=== PATIENT | male | born 1935 | race Caucasian/White ===

== ENCOUNTER 2017-04-21 17:20 | Inpatient (IN) ==
--- OUTSIDE RECORDS SUMMARY | 2017-04-21 17:58 | External Medical Summary | Continuity of Care Document ---
:1935 Author Organization [facility] Allergies Active Description Code Type Severity Reaction Onset Reported/ Identified Relationship Clinical to Patient Status Yes No Known F0019 Drug Unknown N/A 03/26/2013 Drug [id number] Aller Allergies gy Medications There is no data. Problems Date Dx Attending Type Code Diagnosis Diagnosed By Coded 02/24/1914 MARGARITO BALDERAS MD Ot D46.A REFRACTORY CYTOPENIA WITH MULTILINEAGE D 02/24/1914 MARGARITO BALDERAS MD Ot D61.818 OTHER PANCYTOPENIA 03/26/2013 RUNDELL-LITTLE Ot 272.4 , BINA Benedict 03/26/2013 RUNDELL-LITTLE Ot 401.9 , BINA Benedict 03/26/2013 RUNDELL-LITTLE Ot 682.6 , IBNA W 03/26/2013 RUNDELL-LITTLE Ot 959.7 , BINA Benedict 03/26/2013 RUNDELL-LITTLE Ot V15.82 , BINA Benedict 03/28/2013 HINA DO, Ot 401.9 DAVID A 03/28/2013 HINA DO, Ot 682.6 DAVID A 03/28/2013 HINA DO, Ot 729.81 DAVID A 06/28/2013 Maurice MARTIN, Ot 682.6 Ravi Klein 04/01/2015 Ot V82.89 04/01/2015 Ot 682.6 04/03/2015 Ot V82.89 04/03/2015 Ot 682.6 04/03/2015 MARGARITO BALDERAS MD Ot D61.818 04/03/2015 MARGARITO BALDERAS MD Ot D64.9 04/03/2015 MARGARITO BALDERAS MD Ot R53.83 04/23/2015 MARGARITO BALDERAS MD Ot D61.818 04/23/2015 MARGARITO BALDERAS MD Ot D64.9 04/23/2015 MARGARITO BALDERAS MD Ot R53.83 05/05/2015 MARGARITO BALDERAS MD Ot D61.818 05/05/2015 SHERRIE MARTIN MARGARITO J Ot D64.9 05/05/2015 SHERRIE MARTIN MARGARITO J Ot R53.83 05/07/2015 SHERRIE MARTIN MARGARITO J Ot D64.9 05/08/2015 MARGARITO BALDERAS MD Ot D64.9 05/21/2015 SHERRIE MARTIN MARGARITO J Ot M25.551 05/21/2015 SHERRIE MARTIN MARGARITO J Ot M51.37 05/29/2015 SHERRIE MARTIN MARGARITO J Ot M25.551 05/29/2015 SHERRIE MARTIN MARGARITO J Ot M51.37 06/25/2015 SHERRIE MARTIN MARGARITO J Ot M25.551 06/25/2015 SHERRIE MARTIN MARGARITO J Ot M51.37 07/01/2015 SHERRIE MARTIN MARGARITO J Ot D61.818 07/01/2015 SHERRIE MARTIN MARGARITO J Ot D61.818 07/03/2015 SHERRIE MARTIN MARGARITO J Ot D61.818 07/03/2015 SHERRIE MARTIN MARGARITO J Ot D61.818 07/07/2015 SHERRIE MARTIN MARGARITO J Ot D61.818 07/07/2015 SHERRIE MARTIN MARGARITO J Ot D61.818 07/07/2015 SHERRIE MARTIN MARGARITO J Ot D61.818 07/17/2015 SHERRIE MARTIN MARGARITO J Ot D61.818 OTHER PANCYTOPENIA 07/21/2015 SHERRIE MARTIN MARGARITO J Ot D61.818 OTHER PANCYTOPENIA 07/22/2015 SHERRIE MARTIN MARGARITO J Ot D61.818 OTHER PANCYTOPENIA 07/30/2015 SHERRIE MARTIN MARGARITO J Ot D61.818 OTHER PANCYTOPENIA 07/30/2015 SHERRIE MARTIN MARGARITO J Ot D46.A REFRACTORY CYTOPENIA WITH MULTILINEAGE D 07/30/2015 MARGARITO BALDERAS MD J Ot D61.818 OTHER PANCYTOPENIA 08/02/2015 MARGARITO BALDERAS MD Ot D46.A REFRACTORY CYTOPENIA WITH MULTILINEAGE D 08/02/2015 MARGARITO BALDERAS MD J Ot D61.818 OTHER PANCYTOPENIA 10/05/2015 MARGARITO BALDERAS MD Ot D46.A REFRACTORY CYTOPENIA WITH MULTILINEAGE D 10/05/2015 MARGARITO BALDERAS MD J Ot D61.818 OTHER PANCYTOPENIA 10/06/2015 MARGARITO BALDERAS MD Ot D46.A REFRACTORY CYTOPENIA WITH MULTILINEAGE D 10/06/2015 MARGARITO BALDERAS MD Ot D61.818 OTHER PANCYTOPENIA 10/15/2015 MARGARITO BALDERAS MD Ot D46.A REFRACTORY CYTOPENIA WITH MULTILINEAGE D 10/15/2015 MARGARITO BALDERAS MD Ot D61.818 OTHER PANCYTOPENIA 10/22/2015 MARGARITO BALDERAS MD Ot D46.A REFRACTORY CYTOPENIA WITH MULTILINEAGE D 10/31/2015 MARGARITO BALDERAS MD Ot D46.A REFRACTORY CYTOPENIA WITH MULTILINEAGE D 11/17/2015 MARGARITO BALDERAS MD Ot D46.A REFRACTORY CYTOPENIA WITH MULTILINEAGE D 11/24/2015 MARGARITO BALDERAS MD Ot D46.A REFRACTORY CYTOPENIA WITH MULTILINEAGE D 01/04/2016 MARGARITO BALDERAS MD Ot D46.A REFRACTORY CYTOPENIA WITH MULTILINEAGE D 01/05/2016 MARGARITO BALDERAS MD Ot D46.A REFRACTORY CYTOPENIA WITH MULTILINEAGE D 01/05/2016 MARGARITO BALDERAS MD Ot D61.818 OTHER PANCYTOPENIA 01/05/2016 MARGARITO BALDERAS MD Ot D46.A REFRACTORY CYTOPENIA WITH MULTILINEAGE D 01/05/2016 MARGARITO BALDERAS MD Ot D46.A REFRACTORY CYTOPENIA WITH MULTILINEAGE D 01/05/2016 MARGARITO BALDERAS MD Ot D61.818 OTHER PANCYTOPENIA 01/05/2016 MARGARITO BALDERAS MD Ot D46.A REFRACTORY CYTOPENIA WITH MULTILINEAGE D 01/05/2016 MARGARITO BALDERAS MD Ot D61.818 OTHER PANCYTOPENIA 01/05/2016 MARGARITO BALDERAS MD Ot D46.A REFRACTORY CYTOPENIA WITH MULTILINEAGE D 01/05/2016 MARGARITO BALDERAS MD Ot D61.818 OTHER PANCYTOPENIA 01/19/2016 MARGARITO BALDERAS MD Ot D46.A REFRACTORY CYTOPENIA WITH MULTILINEAGE D 01/19/2016 MARGARITO BALDERAS MD Ot D46.A REFRACTORY CYTOPENIA WITH MULTILINEAGE D 01/19/2016 MARGARITO BALDERAS MD Ot D46.A REFRACTORY CYTOPENIA WITH MULTILINEAGE D 01/19/2016 MARGARITO BALDERAS MD Ot D61.818 OTHER PANCYTOPENIA 01/19/2016 MARGARITO BALDERAS MD Ot D46.A REFRACTORY CYTOPENIA WITH MULTILINEAGE D 01/19/2016 MARGARITO BALDERAS MD Ot D61.818 OTHER PANCYTOPENIA 01/21/2016 MARGARITO BALDERAS MD Ot D46.A REFRACTORY CYTOPENIA WITH MULTILINEAGE D 02/18/2016 MARGARITO BALDERAS MD Ot D46.A REFRACTORY CYTOPENIA WITH MULTILINEAGE D 02/18/2016 MARGARITO BALDERAS MD Ot D61.818 OTHER PANCYTOPENIA 02/26/2016 MARGARITO BALDERAS MD Ot D61.818 OTHER PANCYTOPENIA 02/26/2016 MARGARITO BALDERAS MD Ot D64.9 ANEMIA, UNSPECIFIED 02/26/2016 MARGARITO BALDERAS MD Ot R53.83 OTHER FATIGUE 02/26/2016 MARGARITO BALDERAS MD Ot D64.9 ANEMIA, UNSPECIFIED 04/04/2016 MARGARITO BALDERAS MD Ot D46.A REFRACTORY CYTOPENIA WITH MULTILINEAGE D 04/04/2016 MARGARITO BALDERAS MD Ot D61.818 OTHER PANCYTOPENIA 04/04/2016 MARGARITO BALDERAS MD Ot N18.9 CHRONIC KIDNEY DISEASE, UNSPECIFIED 04/06/2016 MARGARITO BALDERAS MD Ot D46.A REFRACTORY CYTOPENIA WITH MULTILINEAGE D 04/06/2016 MARGARITO BALDERAS MD Ot D61.818 OTHER PANCYTOPENIA 04/12/2016 MARGARITO BALDERAS MD Ot D46.A REFRACTORY CYTOPENIA WITH MULTILINEAGE D 04/12/2016 MARGARITO BALDERAS MD Ot D61.818 OTHER PANCYTOPENIA 04/14/2016 MARGARITO BALDERAS MD Ot D46.A REFRACTORY CYTOPENIA WITH MULTILINEAGE D 04/14/2016 MARGARITO BALDERAS MD Ot D61.818 OTHER PANCYTOPENIA 04/14/2016 MARGARITO BALDERAS MD Ot N18.9 CHRONIC KIDNEY DISEASE, UNSPECIFIED 04/20/2016 MARGARITO BALDERAS MD Ot D46.A REFRACTORY CYTOPENIA WITH MULTILINEAGE D 04/20/2016 MARGARITO BALDERAS MD Ot D61.818 OTHER PANCYTOPENIA 04/21/2016 MARGARITO BALDERAS MD Ot D46.A REFRACTORY CYTOPENIA WITH MULTILINEAGE D 04/21/2016 MARGARITO BALDERAS MD Ot D61.818 OTHER PANCYTOPENIA 06/16/2016 MARGARITO BALDERAS MD Ot D46.A REFRACTORY CYTOPENIA WITH MULTILINEAGE D 06/16/2016 MARGARITO BALDERAS MD Ot D61.818 OTHER PANCYTOPENIA 07/11/2016 MARGARITO BALDERAS MD Ot D46.A REFRACTORY CYTOPENIA WITH MULTILINEAGE D 07/11/2016 MARGARITO BALDERAS MD Ot D61.818 OTHER PANCYTOPENIA 07/12/2016 MARGARITO BALDERAS MD Ot D46.A REFRACTORY CYTOPENIA WITH MULTILINEAGE D 07/12/2016 MARGARITO BALDERAS MD Ot D61.818 OTHER PANCYTOPENIA 07/15/2016 MARGARITO BALDERAS MD Ot D46.A REFRACTORY CYTOPENIA WITH MULTILINEAGE D 07/15/2016 MARGARITO BALDERAS MD Ot D61.818 OTHER PANCYTOPENIA 07/15/2016 MARGARITO BALDERAS MD Ot D46.A REFRACTORY CYTOPENIA WITH MULTILINEAGE D 07/15/2016 MARGARITO BALDERAS MD Ot D61.818 OTHER PANCYTOPENIA 07/27/2016 MARGARITO BALDERAS MD Ot D46.A REFRACTORY CYTOPENIA WITH MULTILINEAGE D 07/27/2016 MARGARITO BALDERAS MD Ot D61.818 OTHER PANCYTOPENIA 07/28/2016 MARGARITO BALDERAS MD Ot D46.A REFRACTORY CYTOPENIA WITH MULTILINEAGE D 07/28/2016 MARGARITO BALDERAS MD Ot D61.818 OTHER PANCYTOPENIA 08/20/2016 MARGARITO BALDERAS MD Ot D46.A REFRACTORY CYTOPENIA WITH MULTILINEAGE D 08/20/2016 MARGARITO BALDERAS MD Ot D61.818 OTHER PANCYTOPENIA 08/24/2016 MARGARITO BALDERAS MD Ot D46.A REFRACTORY CYTOPENIA WITH MULTILINEAGE D 08/24/2016 MARGARITO BALDERAS MD Ot D46.A REFRACTORY CYTOPENIA WITH MULTILINEAGE D 08/25/2016 MARGARITO BALDERAS MD Ot D46.A REFRACTORY CYTOPENIA WITH MULTILINEAGE D Procedures There is no data. Results Test Result Range Complete blood count (CBC) with automated white blood cell (WBC) differential - 10/27/15 07:55 Blood automated leukocyte count 3.04 4.0-11.0 Erythrocytes 3.33 4.50-5.50 12.0-16.0;g/dL 11.2 13.5-17.0 Hematocrit 33.50 39.00-50.00 Automated erythrocyte mean corpuscular volume 101 80-100 Mean corpuscular hemoglobin (MCH) determination 33.6 26.0-34.0 Automated erythrocyte mean corpuscular 33.4 31.0-37.0 hemoglobin concentration measurement (mass/volume) Erythrocyte distribution width 19.1 11.8-15.6 Automated blood platelet count 123 150-450 Automated blood platelet mean volume measurement 11.1 6.0-9.5 Complete blood count, platelets with manual differential - 10/27/15 07:55 Total cell count 100 Blood segmented neutrophils percentage 37 51-67 Blood band neutrophil count as percentage of 0 0-6 total leukocytes LYMPHOCYTES % 55 20-46 Automated monocyte percentage 4 3-11 Eosinophil count auto 4 0-4 Basophils 0 0-2 Manual blood metamyelocytes/100 leukocytes 0 0-1 NEUTROPHILS(SEG) 1.1 NEUTROPHILS # BANDS 0.0 Blood lymphocytes manual count 1.7 (number/volume) Automated blood monocyte count 0.1 Blood absolute eosinophil count 0.1 Basophils 0.0 Erythrocyte morphology assessment SEE REFERENCE NORMAL Blood poikilocytosis detection by light SLIGHT microscopy Blood anisocytosis detection SLIGHT Complete blood count (CBC) with automated white blood cell (WBC) differential - 11/10/15 08:35 Blood automated leukocyte count 2.78 4.0-11.0 Erythrocytes 3.59 4.50-5.50 12.0-16.0;g/dL 12.1 13.5-17.0 Hematocrit 35.60 39.00-50.00 Automated erythrocyte mean corpuscular volume 99 80-100 Mean corpuscular hemoglobin (MCH) determination 33.7 26.0-34.0 Automated erythrocyte mean corpuscular 34.0 31.0-37.0 hemoglobin concentration measurement (mass/volume) Erythrocyte distribution width 18.7 11.8-15.6 Automated blood platelet count 140 150-450 Automated blood platelet mean volume measurement 11.0 6.0-9.5 Complete blood count, platelets with manual differential - 11/10/15 08:35 Total cell count 100 Blood segmented neutrophils percentage 29 51-67 Blood band neutrophil count as percentage of 0 0-6 total leukocytes LYMPHOCYTES % 56 20-46 Automated monocyte percentage 10 3-11 Eosinophil count auto 4 0-4 Basophils 1 0-2 Manual blood metamyelocytes/100 leukocytes 0 0-1 NEUTROPHILS(SEG) 0.8 NEUTROPHILS # BANDS 0.0 Blood lymphocytes manual count 1.5 (number/volume) Automated blood monocyte count 0.2 Blood absolute eosinophil count 0.1 Basophils 0.0 Erythrocyte morphology assessment SEE REFERENCE NORMAL Blood anisocytosis detection SLIGHT Complete blood count (CBC) with automated white blood cell (WBC) differential - 11/24/15 07:58 Blood automated leukocyte count 2.38 4.0-11.0 Erythrocytes 3.78 4.50-5.50 12.0-16.0;g/dL 12.6 13.5-17.0 Hematocrit 38.00 39.00-50.00 Automated erythrocyte mean corpuscular volume 101 80-100 Mean corpuscular hemoglobin (MCH) determination 33.3 26.0-34.0 Automated erythrocyte mean corpuscular 33.2 31.0-37.0 hemoglobin concentration measurement (mass/volume) Erythrocyte distribution width 18.7 11.8-15.6 Automated blood platelet count 120 150-450 Complete blood count, platelets with manual differential - 11/24/15 07:58 Total cell count 100 Blood segmented neutrophils percentage 22 51-67 Blood band neutrophil count as percentage of 0 0-6 total leukocytes LYMPHOCYTES % 71 20-46 Automated monocyte percentage 5 3-11 Eosinophil count auto 2 0-4 Basophils 0 0-2 Manual blood metamyelocytes/100 leukocytes 0 0-1 NEUTROPHILS(SEG) 0.5 NEUTROPHILS # BANDS 0.0 Blood lymphocytes manual count 1.6 (number/volume) Automated blood monocyte count 0.1 Blood absolute eosinophil count 0.0 Basophils 0.0 Erythrocyte morphology assessment SEE REFERENCE NORMAL Blood macrocytes detection by light MARKED microscopy Complete blood count (CBC) with automated white blood cell (WBC) differential - 12/08/15 07:55 Blood automated leukocyte count 2.58 4.0-11.0 Erythrocytes 3.39 4.50-5.50 12.0-16.0;g/dL 11.6 13.5-17.0 Hematocrit 33.70 39.00-50.00 Automated erythrocyte mean corpuscular volume 99 80-100 Mean corpuscular hemoglobin (MCH) determination 34.2 26.0-34.0 Automated erythrocyte mean corpuscular 34.4 31.0-37.0 hemoglobin concentration measurement (mass/volume) Erythrocyte distribution width 18.1 11.8-15.6 Automated blood platelet count 137 150-450 Automated blood platelet mean volume measurement 11.4 6.0-9.5 Complete blood count, platelets with manual differential - 12/08/15 07:55 Total cell count 100 Blood segmented neutrophils percentage 22 51-67 Blood band neutrophil count as percentage of 0 0-6 total leukocytes LYMPHOCYTES % 63 20-46 Automated monocyte percentage 13 3-11 Eosinophil count auto 2 0-4 Basophils 0 0-2 Manual blood metamyelocytes/100 leukocytes 0 0-1 NEUTROPHILS(SEG) 0.6 NEUTROPHILS # BANDS 0.0 Blood lymphocytes manual count 1.6 (number/volume) Automated blood monocyte count 0.3 Blood absolute eosinophil count 0.0 Basophils 0.0 Erythrocyte morphology assessment SEE REFERENCE NORMAL Blood anisocytosis detection SLIGHT Blood macrocytes detection by light MODERATE microscopy Complete blood count (CBC) with automated white blood cell (WBC) differential - 12/22/15 08:40 Blood automated leukocyte count 2.93 4.0-11.0 Erythrocytes 3.49 4.50-5.50 12.0-16.0;g/dL 11.7 13.5-17.0 Hematocrit 34.90 39.00-50.00 Automated erythrocyte mean corpuscular volume 100 80-100 Mean corpuscular hemoglobin (MCH) determination 33.5 26.0-34.0 Automated erythrocyte mean corpuscular 33.5 31.0-37.0 hemoglobin concentration measurement (mass/volume) Erythrocyte distribution width 18.2 11.8-15.6 Automated blood platelet count 140 150-450 Automated blood platelet mean volume measurement 11.6 6.0-9.5 Complete blood count, platelets with manual differential - 12/22/15 08:40 Total cell count 100 Blood segmented neutrophils percentage 23 51-67 Blood band neutrophil count as percentage of 2 0-6 total leukocytes LYMPHOCYTES % 44 20-46 Automated monocyte percentage 22 3-11 Eosinophil count auto 6 0-4 Basophils 0 0-2 Manual blood metamyelocytes/100 leukocytes 0 0-1 NEUTROPHILS(SEG) 0.7 NEUTROPHILS # BANDS 0.0 Blood lymphocytes manual count 1.3 (number/volume) Automated blood monocyte count 0.4 Blood absolute eosinophil count 0.1 Basophils 0.0 Lymphocytes.variant 3 <1 Smudge cell detection 2+ Erythrocyte morphology assessment SEE REFERENCE NORMAL Blood anisocytosis detection SLIGHT Blood macrocytes detection by light MODERATE microscopy Complete blood count (CBC) with automated white blood cell (WBC) differential - 01/05/16 08:25 Blood automated leukocyte count 2.88 4.0-11.0 Erythrocytes 3.45 4.50-5.50 12.0-16.0;g/dL 11.8 13.5-17.0 Hematocrit 34.40 39.00-50.00 Automated erythrocyte mean corpuscular volume 100 80-100 Mean corpuscular hemoglobin (MCH) determination 34.2 26.0-34.0 Automated erythrocyte mean corpuscular 34.3 31.0-37.0 hemoglobin concentration measurement (mass/volume) Erythrocyte distribution width 17.7 11.8-15.6 Automated blood platelet count 155 150-450 Automated blood platelet mean volume measurement 10.2 6.0-9.5 Complete blood count, platelets with manual differential - 01/05/16 08:25 Total cell count 100 Blood segmented neutrophils percentage 20 51-67 Blood band neutrophil count as percentage of 0 0-6 total leukocytes LYMPHOCYTES % 54 20-46 Automated monocyte percentage 19 3-11 Eosinophil count auto 6 0-4 Basophils 1 0-2 NEUTROPHILS(SEG) 0.6 NEUTROPHILS # BANDS 0.0 Blood lymphocytes manual count 1.5 (number/volume) Automated blood monocyte count 0.4 Blood absolute eosinophil count 0.1 Basophils 0.0 Erythrocyte morphology assessment SEE REFERENCE NORMAL Blood anisocytosis detection SLIGHT Complete blood count (CBC) with automated white blood cell (WBC) differential - 01/19/16 08:06 Blood automated leukocyte count 2.63 4.0-11.0 Erythrocytes 3.48 4.50-5.50 12.0-16.0;g/dL 11.8 13.5-17.0 Hematocrit 34.70 39.00-50.00 Automated erythrocyte mean corpuscular volume 100 80-100 Mean corpuscular hemoglobin (MCH) determination 33.9 26.0-34.0 Automated erythrocyte mean corpuscular 34.0 31.0-37.0 hemoglobin concentration measurement (mass/volume) Erythrocyte distribution width 17.2 11.8-15.6 Automated blood platelet count 149 150-450 Automated blood platelet mean volume measurement 11.6 6.0-9.5 Complete blood count, platelets with manual differential - 01/19/16 08:06 Total cell count 100 Blood segmented neutrophils percentage 20 51-67 Blood band neutrophil count as percentage of 0 0-6 total leukocytes LYMPHOCYTES % 55 20-46 Automated monocyte percentage 19 3-11 Eosinophil count auto 6 0-4 Basophils 0 0-2 Manual blood metamyelocytes/100 leukocytes 0 0-1 NEUTROPHILS(SEG) 0.5 NEUTROPHILS # BANDS 0.0 Blood lymphocytes manual count 1.4 (number/volume) Automated blood monocyte count 0.4 Blood absolute eosinophil count 0.1 Basophils 0.0 Erythrocyte morphology assessment SEE REFERENCE NORMAL Blood anisocytosis detection SLIGHT Blood macrocytes detection by light SLIGHT microscopy Complete blood count (CBC) with automated white blood cell (WBC) differential - 02/02/16 08:00 Blood automated leukocyte count 2.58 4.0-11.0 Erythrocytes 3.41 4.50-5.50 12.0-16.0;g/dL 11.6 13.5-17.0 Hematocrit 34.00 39.00-50.00 Automated erythrocyte mean corpuscular volume 100 80-100 Mean corpuscular hemoglobin (MCH) determination 34.0 26.0-34.0 Automated erythrocyte mean corpuscular 34.1 31.0-37.0 hemoglobin concentration measurement (mass/volume) Erythrocyte distribution width 17.2 11.8-15.6 Automated blood platelet count 152 150-450 Automated blood platelet mean volume measurement 11.0 6.0-9.5 Complete blood count, platelets with manual differential - 02/02/16 08:00 Total cell count 100 Blood segmented neutrophils percentage 31 51-67 Blood band neutrophil count as percentage of 0 0-6 total leukocytes LYMPHOCYTES % 49 20-46 Automated monocyte percentage 17 3-11 Eosinophil count auto 3 0-4 Basophils 0 0-2 Manual blood metamyelocytes/100 leukocytes 0 0-1 NEUTROPHILS(SEG) 0.8 NEUTROPHILS # BANDS 0.0 Blood lymphocytes manual count 1.2 (number/volume) Automated blood monocyte count 0.3 Blood absolute eosinophil count 0.1 Basophils 0.0 Erythrocyte morphology assessment SEE REFERENCE NORMAL Blood anisocytosis detection SLIGHT Complete blood count (CBC) with automated white blood cell (WBC) differential - 02/16/16 08:09 Blood automated leukocyte count 2.16 4.0-11.0 Erythrocytes 3.53 4.50-5.50 12.0-16.0;g/dL 11.9 13.5-17.0 Hematocrit 35.10 39.00-50.00 Automated erythrocyte mean corpuscular volume 99 80-100 Mean corpuscular hemoglobin (MCH) determination 33.7 26.0-34.0 Automated erythrocyte mean corpuscular 33.9 31.0-37.0 hemoglobin concentration measurement (mass/volume) Erythrocyte distribution width 16.6 11.8-15.6 Automated blood platelet count 150 150-450 Automated blood platelet mean volume measurement 12.4 6.0-9.5 Complete blood count, platelets with manual differential - 02/16/16 08:09 Total cell count 100 Blood segmented neutrophils percentage 14 51-67 Blood band neutrophil count as percentage of total 1 0-6 leukocytes LYMPHOCYTES % 52 20-46 Automated monocyte percentage 25 3-11 Eosinophil count auto 7 0-4 Basophils 1 0-2 NEUTROPHILS(SEG) 0.3 NEUTROPHILS # BANDS 0.0 Blood lymphocytes manual count (number/volume) 1.1 Automated blood monocyte count 0.5 Blood absolute eosinophil count 0.1 Basophils 0.0 Erythrocyte morphology assessment NORMAL NORMAL Complete blood count (CBC) with automated white blood cell (WBC) differential - 02/23/16 09:26 Blood automated leukocyte count 2.25 4.0-11.0 Erythrocytes 3.53 4.50-5.50 12.0-16.0;g/dL 12.0 13.5-17.0 Hematocrit 35.10 39.00-50.00 Automated erythrocyte mean corpuscular volume 99 80-100 Mean corpuscular hemoglobin (MCH) determination 34.0 26.0-34.0 Automated erythrocyte mean corpuscular 34.2 31.0-37.0 hemoglobin concentration measurement (mass/volume) Erythrocyte distribution width 16.9 11.8-15.6 Automated blood platelet count 130 150-450 Automated blood platelet mean volume measurement 11.3 6.0-9.5 Complete blood count, platelets with manual differential - 02/23/16 09:26 Total cell count 100 Blood segmented neutrophils percentage 26 51-67 Blood band neutrophil count as percentage of total 0 0-6 leukocytes LYMPHOCYTES % 61 20-46 Automated monocyte percentage 12 3-11 Eosinophil count auto 1 0-4 Basophils 0 0-2 Manual blood metamyelocytes/100 leukocytes 0 0-1 NEUTROPHILS(SEG) 0.6 NEUTROPHILS # BANDS 0.0 Blood lymphocytes manual count (number/volume) 1.3 Automated blood monocyte count 0.2 Blood absolute eosinophil count 0.0 Basophils 0.0 Erythrocyte morphology assessment NORMAL NORMAL Complete blood count (CBC) with automated white blood cell (WBC) differential - 03/01/16 09:23 Blood automated leukocyte count 2.37 4.0-11.0 Erythrocytes 3.48 4.50-5.50 12.0-16.0;g/dL 11.6 13.5-17.0 Hematocrit 34.70 39.00-50.00 Automated erythrocyte mean corpuscular volume 100 80-100 Mean corpuscular hemoglobin (MCH) determination 33.3 26.0-34.0 Automated erythrocyte mean corpuscular 33.4 31.0-37.0 hemoglobin concentration measurement (mass/volume) Erythrocyte distribution width 16.7 11.8-15.6 Automated blood platelet count 142 150-450 Automated blood platelet mean volume measurement 11.3 6.0-9.5 Complete blood count, platelets with manual differential - 03/01/16 09:23 Total cell count 100 Blood segmented neutrophils percentage 22 51-67 Blood band neutrophil count as percentage of total 0 0-6 leukocytes LYMPHOCYTES % 48 20-46 Automated monocyte percentage 26 3-11 Eosinophil count auto 4 0-4 Basophils 0 0-2 NEUTROPHILS(SEG) 0.5 NEUTROPHILS # BANDS 0.0 Blood lymphocytes manual count (number/volume) 1.1 Automated blood monocyte count 0.5 Blood absolute eosinophil count 0.1 Basophils 0.0 Erythrocyte morphology assessment NORMAL NORMAL Complete blood count (CBC) with automated white blood cell (WBC) differential - 03/08/16 08:12 Blood automated leukocyte count 2.33 4.0-11.0 Erythrocytes 3.52 4.50-5.50 12.0-16.0;g/dL 11.8 13.5-17.0 Hematocrit 35.00 39.00-50.00 Automated erythrocyte mean corpuscular volume 99 80-100 Mean corpuscular hemoglobin (MCH) determination 33.5 26.0-34.0 Automated erythrocyte mean corpuscular 33.7 31.0-37.0 hemoglobin concentration measurement (mass/volume) Erythrocyte distribution width 16.8 11.8-15.6 Automated blood platelet count 134 150-450 Automated blood platelet mean volume measurement 10.7 6.0-9.5 Complete blood count, platelets with manual differential - 03/08/16 08:12 Total cell count 100 Blood segmented neutrophils percentage 30 51-67 Blood band neutrophil count as percentage of total 2 0-6 leukocytes LYMPHOCYTES % 51 20-46 Automated monocyte percentage 13 3-11 Eosinophil count auto 2 0-4 Basophils 2 0-2 Manual blood metamyelocytes/100 leukocytes 0 0-1 NEUTROPHILS(SEG) 0.7 NEUTROPHILS # BANDS 0.0 Blood lymphocytes manual count (number/volume) 1.2 Automated blood monocyte count 0.3 Blood absolute eosinophil count 0.0 Basophils 0.0 Erythrocyte morphology assessment NORMAL NORMAL Complete blood count (CBC) with automated white blood cell (WBC) differential - 03/15/16 08:39 Blood automated leukocyte count 2.96 4.0-11.0 Erythrocytes 3.52 4.50-5.50 12.0-16.0;g/dL 11.8 13.5-17.0 Hematocrit 35.50 39.00-50.00 Automated erythrocyte mean corpuscular volume 101 80-100 Mean corpuscular hemoglobin (MCH) determination 33.5 26.0-34.0 Automated erythrocyte mean corpuscular 33.2 31.0-37.0 hemoglobin concentration measurement (mass/volume) Erythrocyte distribution width 16.9 11.8-15.6 Automated blood platelet count 143 150-450 Automated blood platelet mean volume measurement 10.9 6.0-9.5 Complete blood count, platelets with manual differential - 03/15/16 08:39 Total cell count 100 Blood segmented neutrophils percentage 26 51-67 Blood band neutrophil count as percentage of total 0 0-6 leukocytes LYMPHOCYTES % 43 20-46 Automated monocyte percentage 23 3-11 Eosinophil count auto 7 0-4 Basophils 1 0-2 NEUTROPHILS(SEG) 0.8 NEUTROPHILS # BANDS 0.0 Blood lymphocytes manual count (number/volume) 1.3 Automated blood monocyte count 0.5 Blood absolute eosinophil count 0.1 Basophils 0.0 Erythrocyte morphology assessment NORMAL NORMAL Complete blood count (CBC) with automated white blood cell (WBC) differential - 03/23/16 08:25 Blood automated leukocyte count 2.18 4.0-11.0 Erythrocytes 3.36 4.50-5.50 12.0-16.0;g/dL 11.4 13.5-17.0 Hematocrit 33.90 39.00-50.00 Automated erythrocyte mean corpuscular volume 101 80-100 Mean corpuscular hemoglobin (MCH) determination 33.9 26.0-34.0 Automated erythrocyte mean corpuscular 33.6 31.0-37.0 hemoglobin concentration measurement (mass/volume) Erythrocyte distribution width 17.1 11.8-15.6 Automated blood platelet count 131 150-450 Automated blood platelet mean volume measurement 10.7 6.0-9.5 Complete blood count, platelets with manual differential - 03/23/16 08:25 Total cell count 100 Blood segmented neutrophils percentage 22 51-67 Blood band neutrophil count as percentage of total 0 0-6 leukocytes LYMPHOCYTES % 64 20-46 Automated monocyte percentage 12 3-11 Eosinophil count auto 2 0-4 Basophils 0 0-2 Manual blood metamyelocytes/100 leukocytes 0 0-1 NEUTROPHILS(SEG) 0.5 NEUTROPHILS # BANDS 0.0 Blood lymphocytes manual count (number/volume) 1.3 Automated blood monocyte count 0.2 Blood absolute eosinophil count 0.0 Basophils 0.0 Erythrocyte morphology assessment NORMAL NORMAL BASIC METABOLIC PANEL* - 03/23/16 13:00 Sodium measurement 89 70-110 Carbon dioxide measurement 24 22-29 Serum or plasma anion gap 14.9 3-15 BLOOD UREA NITROGEN 25 7-18 CREATININE SERUM 1.39 0.8-1.5 Brucella species antibody panel (IgG, IgM) 18 10-20 Estimated glomerular filtration rate (GFR) 59.0 [place] Estimated glomerular filtration rate (GFR) 48.8 non- CALCIUM 9.0 8.8-10.8 Complete blood count (CBC) with automated white blood cell (WBC) differential - 03/30/16 08:32 Blood automated leukocyte count 2.48 4.0-11.0 Erythrocytes 3.52 4.50-5.50 12.0-16.0;g/dL 12.0 13.5-17.0 Hematocrit 35.10 39.00-50.00 Automated erythrocyte mean corpuscular volume 100 80-100 Mean corpuscular hemoglobin (MCH) determination 34.1 26.0-34.0 Automated erythrocyte mean corpuscular 34.2 31.0-37.0 hemoglobin concentration measurement (mass/volume) Erythrocyte distribution width 17.1 11.8-15.6 Automated blood platelet count 136 150-450 Automated blood platelet mean volume measurement 11.0 6.0-9.5 Complete blood count, platelets with manual differential - 03/30/16 08:32 Total cell count 100 Blood segmented neutrophils percentage 18 51-67 Blood band neutrophil count as percentage of total 1 0-6 leukocytes LYMPHOCYTES % 52 20-46 Automated monocyte percentage 18 3-11 Eosinophil count auto 4 0-4 Basophils 0 0-2 Manual blood metamyelocytes/100 leukocytes 0 0-1 NEUTROPHILS(SEG) 0.5 NEUTROPHILS # BANDS 0.0 Blood lymphocytes manual count (number/volume) 1.3 Automated blood monocyte count 0.4 Blood absolute eosinophil count 0.1 Basophils 0.0 Lymphocytes.variant 7 <1 Erythrocyte morphology assessment NORMAL NORMAL Complete blood count (CBC) with automated white blood cell (WBC) differential - 04/05/16 08:22 Blood automated leukocyte count 2.58 4.0-11.0 Erythrocytes 3.45 4.50-5.50 12.0-16.0;g/dL 11.8 13.5-17.0 Hematocrit 34.40 39.00-50.00 Automated erythrocyte mean corpuscular volume 100 80-100 Mean corpuscular hemoglobin (MCH) determination 34.2 26.0-34.0 Automated erythrocyte mean corpuscular 34.3 31.0-37.0 hemoglobin concentration measurement (mass/volume) Erythrocyte distribution width 17.0 11.8-15.6 Automated blood platelet count 130 150-450 Automated blood platelet mean volume measurement 10.9 6.0-9.5 Complete blood count, platelets with manual differential - 04/05/16 08:22 Total cell count 100 Blood segmented neutrophils percentage 28 51-67 Blood band neutrophil count as percentage of total 0 0-6 leukocytes LYMPHOCYTES % 51 20-46 Automated monocyte percentage 17 3-11 Eosinophil count auto 3 0-4 Basophils 1 0-2 Manual blood metamyelocytes/100 leukocytes 0 0-1 NEUTROPHILS(SEG) 0.7 NEUTROPHILS # BANDS 0.0 Blood lymphocytes manual count (number/volume) 1.3 Automated blood monocyte count 0.3 Blood absolute eosinophil count 0.1 Basophils 0.0 Erythrocyte morphology assessment NORMAL NORMAL Complete blood count (CBC) with automated white blood cell (WBC) differential - 04/12/16 09:05 Blood automated leukocyte count 3.06 4.0-11.0 Erythrocytes 3.57 4.50-5.50 12.0-16.0;g/dL 12.1 13.5-17.0 Hematocrit 35.60 39.00-50.00 Automated erythrocyte mean corpuscular volume 100 80-100 Mean corpuscular hemoglobin (MCH) determination 33.9 26.0-34.0 Automated erythrocyte mean corpuscular 34.0 31.0-37.0 hemoglobin concentration measurement (mass/volume) Erythrocyte distribution width 17.3 11.8-15.6 Automated blood platelet count 142 150-450 Automated blood platelet mean volume measurement 11.1 6.0-9.5 Complete blood count, platelets with manual differential - 04/12/16 09:05 Total cell count 100 Blood segmented neutrophils percentage 23 51-67 Blood band neutrophil count as percentage of 1 0-6 total leukocytes LYMPHOCYTES % 50 20-46 Automated monocyte percentage 21 3-11 Eosinophil count auto 5 0-4 Basophils 0 0-2 NEUTROPHILS(SEG) 0.7 NEUTROPHILS # BANDS 0.0 Blood lymphocytes manual count 1.5 (number/volume) Automated blood monocyte count 0.6 Blood absolute eosinophil count 0.2 Basophils 0.0 Erythrocyte morphology assessment SEE REFERENCE NORMAL Blood anisocytosis detection SLIGHT Complete blood count (CBC) with automated white blood cell (WBC) differential - 04/19/16 08:31 Blood automated leukocyte count 2.06 4.0-11.0 Erythrocytes 3.33 4.50-5.50 12.0-16.0;g/dL 11.4 13.5-17.0 Hematocrit 33.40 39.00-50.00 Automated erythrocyte mean corpuscular volume 100 80-100 Mean corpuscular hemoglobin (MCH) determination 34.2 26.0-34.0 Automated erythrocyte mean corpuscular 34.1 31.0-37.0 hemoglobin concentration measurement (mass/volume) Erythrocyte distribution width 17.1 11.8-15.6 Automated blood platelet count 125 150-450 Automated blood platelet mean volume measurement 10.5 6.0-9.5 Complete blood count, platelets with manual differential - 04/19/16 08:31 Total cell count 100 Blood segmented neutrophils percentage 25 51-67 Blood band neutrophil count as percentage of total 1 0-6 leukocytes LYMPHOCYTES % 48 20-46 Automated monocyte percentage 19 3-11 Eosinophil count auto 7 0-4 Basophils 0 0-2 NEUTROPHILS(SEG) 0.5 NEUTROPHILS # BANDS 0.0 Blood lymphocytes manual count (number/volume) 1.0 Automated blood monocyte count 0.4 Blood absolute eosinophil count 0.1 Basophils 0.0 Erythrocyte morphology assessment NORMAL NORMAL Complete blood count (CBC) with automated white blood cell (WBC) differential - 04/26/16 07:58 Blood automated leukocyte count 2.75 4.0-11.0 Erythrocytes 3.50 4.50-5.50 12.0-16.0;g/dL 11.8 13.5-17.0 Hematocrit 35.10 39.00-50.00 Automated erythrocyte mean corpuscular volume 100 80-100 Mean corpuscular hemoglobin (MCH) determination 33.7 26.0-34.0 Automated erythrocyte mean corpuscular 33.6 31.0-37.0 hemoglobin concentration measurement (mass/volume) Erythrocyte distribution width 17.1 11.8-15.6 Automated blood platelet count 153 150-450 Automated blood platelet mean volume measurement 11.8 6.0-9.5 Complete blood count, platelets with manual differential - 04/26/16 07:58 Total cell count 100 Blood segmented neutrophils percentage 26 51-67 Blood band neutrophil count as percentage of total 2 0-6 leukocytes LYMPHOCYTES % 40 20-46 Automated monocyte percentage 21 3-11 Eosinophil count auto 4 0-4 Basophils 0 0-2 Manual blood metamyelocytes/100 leukocytes 0 0-1 NEUTROPHILS(SEG) 0.7 NEUTROPHILS # BANDS 0.0 Blood lymphocytes manual count (number/volume) 1.1 Automated blood monocyte count 0.4 Blood absolute eosinophil count 0.1 Basophils 0.0 Lymphocytes.variant 7 <1 Erythrocyte morphology assessment NORMAL NORMAL Complete blood count (CBC) with automated white blood cell (WBC) differential - 05/03/16 07:55 Blood automated leukocyte count 2.56 4.0-11.0 Erythrocytes 3.59 4.50-5.50 12.0-16.0;g/dL 12.2 13.5-17.0 Hematocrit 36.00 39.00-50.00 Automated erythrocyte mean corpuscular volume 100 80-100 Mean corpuscular hemoglobin (MCH) determination 34.0 26.0-34.0 Automated erythrocyte mean corpuscular 33.9 31.0-37.0 hemoglobin concentration measurement (mass/volume) Erythrocyte distribution width 16.9 11.8-15.6 Automated blood platelet count 130 150-450 Automated blood platelet mean volume measurement 10.7 6.0-9.5 Complete blood count, platelets with manual differential - 05/03/16 07:55 Total cell count 100 Blood segmented neutrophils percentage 27 51-67 Blood band neutrophil count as percentage of total 0 0-6 leukocytes LYMPHOCYTES % 65 20-46 Automated monocyte percentage 7 3-11 Eosinophil count auto 1 0-4 Basophils 0 0-2 Manual blood metamyelocytes/100 leukocytes 0 0-1 NEUTROPHILS(SEG) 0.7 NEUTROPHILS # BANDS 0.0 Blood lymphocytes manual count (number/volume) 1.6 Automated blood monocyte count 0.1 Blood absolute eosinophil count 0.0 Basophils 0.0 Erythrocyte morphology assessment NORMAL NORMAL Complete blood count (CBC) with automated white blood cell (WBC) differential - 05/10/16 07:59 Blood automated leukocyte count 2.39 4.0-11.0 Erythrocytes 3.57 4.50-5.50 12.0-16.0;g/dL 12.3 13.5-17.0 Hematocrit 35.70 39.00-50.00 Automated erythrocyte mean corpuscular volume 100 80-100 Mean corpuscular hemoglobin (MCH) determination 34.5 26.0-34.0 Automated erythrocyte mean corpuscular 34.5 31.0-37.0 hemoglobin concentration measurement (mass/volume) Erythrocyte distribution width 16.8 11.8-15.6 Automated blood platelet count 141 150-450 Automated blood platelet mean volume measurement 11.8 6.0-9.5 Complete blood count, platelets with manual differential - 05/10/16 07:59 Total cell count 100 Blood segmented neutrophils percentage 21 51-67 Blood band neutrophil count as percentage of 0 0-6 total leukocytes LYMPHOCYTES % 56 20-46 Automated monocyte percentage 22 3-11 Eosinophil count auto 1 0-4 Basophils 0 0-2 NEUTROPHILS(SEG) 0.5 NEUTROPHILS # BANDS 0.0 Blood lymphocytes manual count 1.3 (number/volume) Automated blood monocyte count 0.4 Blood absolute eosinophil count 0.0 Basophils 0.0 Erythrocyte morphology assessment SEE REFERENCE NORMAL Blood anisocytosis detection SLIGHT Complete blood count (CBC) with automated white blood cell (WBC) differential - 05/18/16 08:05 Blood automated leukocyte count 2.43 4.0-11.0 Erythrocytes 3.34 4.50-5.50 12.0-16.0;g/dL 11.5 13.5-17.0 Hematocrit 33.10 39.00-50.00 Automated erythrocyte mean corpuscular volume 99 80-100 Mean corpuscular hemoglobin (MCH) determination 34.4 26.0-34.0 Automated erythrocyte mean corpuscular 34.7 31.0-37.0 hemoglobin concentration measurement (mass/volume) Erythrocyte distribution width 17.2 11.8-15.6 Automated blood platelet count 121 150-450 Automated blood platelet mean volume measurement 11.3 6.0-9.5 Complete blood count, platelets with manual differential - 05/18/16 08:05 Total cell count 100 Blood segmented neutrophils percentage 30 51-67 Blood band neutrophil count as percentage of total 0 0-6 leukocytes LYMPHOCYTES % 69 20-46 Automated monocyte percentage 0 3-11 Eosinophil count auto 1 0-4 Basophils 0 0-2 Manual blood metamyelocytes/100 leukocytes 0 0-1 NEUTROPHILS(SEG) 0.7 NEUTROPHILS # BANDS 0.0 Blood lymphocytes manual count (number/volume) 1.7 Automated blood monocyte count 0.0 Blood absolute eosinophil count 0.0 Basophils 0.0 Erythrocyte morphology assessment NORMAL NORMAL Complete blood count (CBC) with automated white blood cell (WBC) differential - 05/24/16 08:04 Blood automated leukocyte count 2.99 4.0-11.0 Erythrocytes 3.48 4.50-5.50 12.0-16.0;g/dL 11.9 13.5-17.0 Hematocrit 34.50 39.00-50.00 Automated erythrocyte mean corpuscular volume 99 80-100 Mean corpuscular hemoglobin (MCH) determination 34.2 26.0-34.0 Automated erythrocyte mean corpuscular 34.5 31.0-37.0 hemoglobin concentration measurement (mass/volume) Erythrocyte distribution width 17.1 11.8-15.6 Automated blood platelet count 138 150-450 Automated blood platelet mean volume measurement 11.3 6.0-9.5 Complete blood count, platelets with manual differential - 05/24/16 08:04 Total cell count 100 Blood segmented neutrophils percentage 23 51-67 Blood band neutrophil count as percentage of 0 0-6 total leukocytes LYMPHOCYTES % 48 20-46 Automated monocyte percentage 26 3-11 Eosinophil count auto 2 0-4 Basophils 1 0-2 NEUTROPHILS(SEG) 0.7 NEUTROPHILS # BANDS 0.0 Blood lymphocytes manual count 1.4 (number/volume) Automated blood monocyte count 0.5 Blood absolute eosinophil count 0.0 Basophils 0.0 Erythrocyte morphology assessment SEE REFERENCE NORMAL Blood anisocytosis detection SLIGHT Complete blood count (CBC) with automated white blood cell (WBC) differential - 05/31/16 07:41 Blood automated leukocyte count 2.75 4.0-11.0 Erythrocytes 3.57 4.50-5.50 12.0-16.0;g/dL 12.2 13.5-17.0 Hematocrit 35.60 39.00-50.00 Automated erythrocyte mean corpuscular volume 100 80-100 Mean corpuscular hemoglobin (MCH) determination 34.2 26.0-34.0 Automated erythrocyte mean corpuscular 34.3 31.0-37.0 hemoglobin concentration measurement (mass/volume) Erythrocyte distribution width 17.1 11.8-15.6 Automated blood platelet count 151 150-450 Automated blood platelet mean volume measurement 11.4 6.0-9.5 Complete blood count, platelets with manual differential - 05/31/16 07:41 Total cell count 100 Blood segmented neutrophils percentage 36 51-67 Blood band neutrophil count as percentage of 0 0-6 total leukocytes LYMPHOCYTES % 43 20-46 Automated monocyte percentage 19 3-11 Eosinophil count auto 2 0-4 Basophils 0 0-2 NEUTROPHILS(SEG) 1.0 NEUTROPHILS # BANDS 0.0 Blood lymphocytes manual count 1.2 (number/volume) Automated blood monocyte count 0.4 Blood absolute eosinophil count 0.0 Basophils 0.0 Erythrocyte morphology assessment SEE REFERENCE NORMAL Blood anisocytosis detection SLIGHT Complete blood count (CBC) with automated white blood cell (WBC) differential - 06/07/16 08:04 Blood automated leukocyte count 2.73 4.0-11.0 Erythrocytes 3.61 4.50-5.50 12.0-16.0;g/dL 12.1 13.5-17.0 Hematocrit 36.30 39.00-50.00 Automated erythrocyte mean corpuscular volume 101 80-100 Mean corpuscular hemoglobin (MCH) determination 33.5 26.0-34.0 Automated erythrocyte mean corpuscular 33.3 31.0-37.0 hemoglobin concentration measurement (mass/volume) Erythrocyte distribution width 17.0 11.8-15.6 Automated blood platelet count 139 150-450 Automated blood platelet mean volume measurement 11.1 6.0-9.5 Complete blood count, platelets with manual differential - 06/07/16 08:04 Total cell count 100 Blood segmented neutrophils percentage 25 51-67 Blood band neutrophil count as percentage of 0 0-6 total leukocytes LYMPHOCYTES % 52 20-46 Automated monocyte percentage 18 3-11 Eosinophil count auto 4 0-4 Basophils 1 0-2 NEUTROPHILS(SEG) 0.7 NEUTROPHILS # BANDS 0.0 Blood lymphocytes manual count 1.4 (number/volume) Automated blood monocyte count 0.4 Blood absolute eosinophil count 0.1 Basophils 0.0 Erythrocyte morphology assessment SEE REFERENCE NORMAL Blood anisocytosis detection SLIGHT Complete blood count (CBC) with automated white blood cell (WBC) differential - 06/14/16 07:40 Blood automated leukocyte count 2.95 4.0-11.0 Erythrocytes 3.64 4.50-5.50 12.0-16.0;g/dL 12.2 13.5-17.0 Hematocrit 36.30 39.00-50.00 Automated erythrocyte mean corpuscular volume 100 80-100 Mean corpuscular hemoglobin (MCH) determination 33.5 26.0-34.0 Automated erythrocyte mean corpuscular 33.6 31.0-37.0 hemoglobin concentration measurement (mass/volume) Erythrocyte distribution width 17.0 11.8-15.6 Automated blood platelet count 134 150-450 Automated blood platelet mean volume measurement 11.4 6.0-9.5 Complete blood count, platelets with manual differential - 06/14/16 07:40 Total cell count 100 Blood segmented neutrophils percentage 34 51-67 Blood band neutrophil count as percentage of total 0 0-6 leukocytes LYMPHOCYTES % 51 20-46 Automated monocyte percentage 15 3-11 Eosinophil count auto 0 0-4 Basophils 0 0-2 Manual blood metamyelocytes/100 leukocytes 0 0-1 NEUTROPHILS(SEG) 1.0 NEUTROPHILS # BANDS 0.0 Blood lymphocytes manual count (number/volume) 1.5 Automated blood monocyte count 0.3 Blood absolute eosinophil count 0.0 Basophils 0.0 Erythrocyte morphology assessment NORMAL NORMAL Complete blood count (CBC) with automated white blood cell (WBC) differential - 06/21/16 08:02 Blood automated leukocyte count 2.93 4.0-11.0 Erythrocytes 3.57 4.50-5.50 12.0-16.0;g/dL 11.9 13.5-17.0 Hematocrit 35.90 39.00-50.00 Automated erythrocyte mean corpuscular volume 101 80-100 Mean corpuscular hemoglobin (MCH) determination 33.3 26.0-34.0 Automated erythrocyte mean corpuscular 33.1 31.0-37.0 hemoglobin concentration measurement (mass/volume) Erythrocyte distribution width 17.1 11.8-15.6 Automated blood platelet count 143 150-450 Automated blood platelet mean volume measurement 11.0 6.0-9.5 Complete blood count, platelets with manual differential - 06/21/16 08:02 Total cell count 100 Blood segmented neutrophils percentage 24 51-67 Blood band neutrophil count as percentage of 0 0-6 total leukocytes LYMPHOCYTES % 51 20-46 Automated monocyte percentage 21 3-11 Eosinophil count auto 3 0-4 Basophils 1 0-2 NEUTROPHILS(SEG) 0.7 NEUTROPHILS # BANDS 0.0 Blood lymphocytes manual count 1.5 (number/volume) Automated blood monocyte count 0.4 Blood absolute eosinophil count 0.1 Basophils 0.0 Erythrocyte morphology assessment SEE REFERENCE NORMAL Blood anisocytosis detection SLIGHT Complete blood count (CBC) with automated white blood cell (WBC) differential - 06/28/16 07:58 Blood automated leukocyte count 2.56 4.0-11.0 Erythrocytes 3.51 4.50-5.50 12.0-16.0;g/dL 11.8 13.5-17.0 Hematocrit 35.30 39.00-50.00 Automated erythrocyte mean corpuscular volume 101 80-100 Mean corpuscular hemoglobin (MCH) determination 33.6 26.0-34.0 Automated erythrocyte mean corpuscular 33.4 31.0-37.0 hemoglobin concentration measurement (mass/volume) Erythrocyte distribution width 16.8 11.8-15.6 Automated blood platelet count 144 150-450 Automated blood platelet mean volume measurement 11.0 6.0-9.5 Complete blood count, platelets with manual differential - 06/28/16 07:58 Total cell count 100 Blood segmented neutrophils percentage 33 51-67 Blood band neutrophil count as percentage of total 0 0-6 leukocytes LYMPHOCYTES % 54 20-46 Automated monocyte percentage 8 3-11 Eosinophil count auto 5 0-4 Basophils 0 0-2 Manual blood metamyelocytes/100 leukocytes 0 0-1 NEUTROPHILS(SEG) 0.8 NEUTROPHILS # BANDS 0.0 Blood lymphocytes manual count (number/volume) 1.4 Automated blood monocyte count 0.2 Blood absolute eosinophil count 0.1 Basophils 0.0 Erythrocyte morphology assessment NORMAL NORMAL Complete blood count (CBC) with automated white blood cell (WBC) differential - 07/05/16 08:15 Blood automated leukocyte count 2.80 4.0-11.0 Erythrocytes 3.58 4.50-5.50 12.0-16.0;g/dL 11.9 13.5-17.0 Hematocrit 35.90 39.00-50.00 Automated erythrocyte mean corpuscular volume 100 80-100 Mean corpuscular hemoglobin (MCH) determination 33.2 26.0-34.0 Automated erythrocyte mean corpuscular 33.1 31.0-37.0 hemoglobin concentration measurement (mass/volume) Erythrocyte distribution width 17.1 11.8-15.6 Automated blood platelet count 131 150-450 Automated blood platelet mean volume measurement 11.2 6.0-9.5 Complete blood count, platelets with manual differential - 07/05/16 08:15 Total cell count 100 Blood segmented neutrophils percentage 29 51-67 Blood band neutrophil count as percentage of 2 0-6 total leukocytes LYMPHOCYTES % 46 20-46 Automated monocyte percentage 19 3-11 Eosinophil count auto 4 0-4 Basophils 0 0-2 NEUTROPHILS(SEG) 0.8 NEUTROPHILS # BANDS 0.0 Blood lymphocytes manual count 1.3 (number/volume) Automated blood monocyte count 0.4 Blood absolute eosinophil count 0.1 Basophils 0.0 Erythrocyte morphology assessment SEE REFERENCE NORMAL Blood anisocytosis detection SLIGHT Complete blood count (CBC) with automated white blood cell (WBC) differential - 07/12/16 08:01 Blood automated leukocyte count 2.55 4.0-11.0 Erythrocytes 3.55 4.50-5.50 12.0-16.0;g/dL 11.8 13.5-17.0 Hematocrit 35.60 39.00-50.00 Automated erythrocyte mean corpuscular volume 100 80-100 Mean corpuscular hemoglobin (MCH) determination 33.2 26.0-34.0 Automated erythrocyte mean corpuscular 33.1 31.0-37.0 hemoglobin concentration measurement (mass/volume) Erythrocyte distribution width 17.1 11.8-15.6 Automated blood platelet count 124 150-450 Automated blood platelet mean volume measurement 11.7 6.0-9.5 Complete blood count, platelets with manual differential - 07/12/16 08:01 Total cell count 100 Blood segmented neutrophils percentage 27 51-67 Blood band neutrophil count as percentage of total 0 0-6 leukocytes LYMPHOCYTES % 57 20-46 Automated monocyte percentage 12 3-11 Eosinophil count auto 4 0-4 Basophils 0 0-2 Manual blood metamyelocytes/100 leukocytes 0 0-1 NEUTROPHILS(SEG) 0.7 NEUTROPHILS # BANDS 0.0 Blood lymphocytes manual count (number/volume) 1.4 Automated blood monocyte count 0.2 Blood absolute eosinophil count 0.1 Basophils 0.0 Erythrocyte morphology assessment NORMAL NORMAL Complete blood count (CBC) with automated white blood cell (WBC) differential - 07/19/16 08:06 Blood automated leukocyte count 2.95 4.0-11.0 Erythrocytes 3.67 4.50-5.50 12.0-16.0;g/dL 12.3 13.5-17.0 Hematocrit 36.50 39.00-50.00 Automated erythrocyte mean corpuscular volume 100 80-100 Mean corpuscular hemoglobin (MCH) determination 33.5 26.0-34.0 Automated erythrocyte mean corpuscular 33.7 31.0-37.0 hemoglobin concentration measurement (mass/volume) Erythrocyte distribution width 17.3 11.8-15.6 Automated blood platelet count 148 150-450 Complete blood count, platelets with manual differential - 07/19/16 08:06 Total cell count 100 Blood segmented neutrophils percentage 27 51-67 Blood band neutrophil count as percentage of 1 0-6 total leukocytes LYMPHOCYTES % 50 20-46 Automated monocyte percentage 19 3-11 Eosinophil count auto 3 0-4 Basophils 0 0-2 NEUTROPHILS(SEG) 0.8 NEUTROPHILS # BANDS 0.0 Blood lymphocytes manual count 1.5 (number/volume) Automated blood monocyte count 0.4 Blood absolute eosinophil count 0.1 Basophils 0.0 Erythrocyte morphology assessment SEE REFERENCE NORMAL Blood anisocytosis detection SLIGHT Complete blood count (CBC) with automated white blood cell (WBC) differential - 07/26/16 07:58 Blood automated leukocyte count 2.61 4.0-11.0 Erythrocytes 3.55 4.50-5.50 12.0-16.0;g/dL 11.7 13.5-17.0 Hematocrit 35.40 39.00-50.00 Automated erythrocyte mean corpuscular volume 100 80-100 Mean corpuscular hemoglobin (MCH) determination 33.0 26.0-34.0 Automated erythrocyte mean corpuscular 33.1 31.0-37.0 hemoglobin concentration measurement (mass/volume) Erythrocyte distribution width 17.5 11.8-15.6 Automated blood platelet count 136 150-450 Automated blood platelet mean volume measurement 10.8 6.0-9.5 Complete blood count, platelets with manual differential - 07/26/16 07:58 Total cell count 100 Blood segmented neutrophils percentage 26 51-67 Blood band neutrophil count as percentage of total 0 0-6 leukocytes LYMPHOCYTES % 58 20-46 Automated monocyte percentage 13 3-11 Eosinophil count auto 3 0-4 Basophils 0 0-2 Manual blood metamyelocytes/100 leukocytes 0 0-1 NEUTROPHILS(SEG) 0.7 NEUTROPHILS # BANDS 0.0 Blood lymphocytes manual count (number/volume) 1.5 Automated blood monocyte count 0.3 Blood absolute eosinophil count 0.1 Basophils 0.0 Erythrocyte morphology assessment NORMAL NORMAL Complete blood count (CBC) with automated white blood cell (WBC) differential - 08/02/16 07:51 Blood automated leukocyte count 2.46 4.0-11.0 Erythrocytes 3.67 4.50-5.50 12.0-16.0;g/dL 12.2 13.5-17.0 Hematocrit 36.60 39.00-50.00 Automated erythrocyte mean corpuscular volume 100 80-100 Mean corpuscular hemoglobin (MCH) determination 33.2 26.0-34.0 Automated erythrocyte mean corpuscular 33.3 31.0-37.0 hemoglobin concentration measurement (mass/volume) Erythrocyte distribution width 17.6 11.8-15.6 Automated blood platelet count 143 150-450 Automated blood platelet mean volume measurement 11.9 6.0-9.5 Complete blood count, platelets with manual differential - 08/02/16 07:51 Total cell count 100 Blood segmented neutrophils percentage 18 51-67 Blood band neutrophil count as percentage of 0 0-6 total leukocytes LYMPHOCYTES % 57 20-46 Automated monocyte percentage 22 3-11 Eosinophil count auto 3 0-4 Basophils 0 0-2 NEUTROPHILS(SEG) 0.4 NEUTROPHILS # BANDS 0.0 Blood lymphocytes manual count 1.4 (number/volume) Automated blood monocyte count 0.4 Blood absolute eosinophil count 0.1 Basophils 0.0 Erythrocyte morphology assessment SEE REFERENCE NORMAL Blood anisocytosis detection SLIGHT Complete blood count (CBC) with automated white blood cell (WBC) differential - 08/09/16 08:04 Blood automated leukocyte count 3.10 4.0-11.0 Erythrocytes 3.62 4.50-5.50 12.0-16.0;g/dL 12.0 13.5-17.0 Hematocrit 35.70 39.00-50.00 Automated erythrocyte mean corpuscular volume 99 80-100 Mean corpuscular hemoglobin (MCH) determination 33.1 26.0-34.0 Automated erythrocyte mean corpuscular 33.6 31.0-37.0 hemoglobin concentration measurement (mass/volume) Erythrocyte distribution width 17.6 11.8-15.6 Automated blood platelet count 137 150-450 Complete blood count, platelets with manual differential - 08/09/16 08:04 Total cell count 100 Blood segmented neutrophils percentage 26 51-67 Blood band neutrophil count as percentage of total 1 0-6 leukocytes LYMPHOCYTES % 67 20-46 Automated monocyte percentage 5 3-11 Eosinophil count auto 1 0-4 Basophils 0 0-2 Manual blood metamyelocytes/100 leukocytes 0 0-1 NEUTROPHILS(SEG) 0.8 NEUTROPHILS # BANDS 0.0 Blood lymphocytes manual count (number/volume) 2.1 Automated blood monocyte count 0.2 Blood absolute eosinophil count 0.0 Basophils 0.0 Erythrocyte morphology assessment NORMAL NORMAL Complete blood count (CBC) with automated white blood cell (WBC) differential - 08/16/16 08:09 Blood automated leukocyte count 2.56 4.0-11.0 Erythrocytes 3.68 4.50-5.50 12.0-16.0;g/dL 12.1 13.5-17.0 Hematocrit 36.20 39.00-50.00 Automated erythrocyte mean corpuscular volume 98 80-100 Mean corpuscular hemoglobin (MCH) determination 32.9 26.0-34.0 Automated erythrocyte mean corpuscular 33.4 31.0-37.0 hemoglobin concentration measurement (mass/volume) Erythrocyte distribution width 17.5 11.8-15.6 Automated blood platelet count 138 150-450 Automated blood platelet mean volume measurement 11.4 6.0-9.5 Complete blood count, platelets with manual differential - 08/16/16 08:09 Total cell count 100 Blood segmented neutrophils percentage 29 51-67 Blood band neutrophil count as percentage of 0 0-6 total leukocytes LYMPHOCYTES % 44 20-46 Automated monocyte percentage 21 3-11 Eosinophil count auto 5 0-4 Basophils 1 0-2 NEUTROPHILS(SEG) 0.7 NEUTROPHILS # BANDS 0.0 Blood lymphocytes manual count 1.1 (number/volume) Automated blood monocyte count 0.4 Blood absolute eosinophil count 0.1 Basophils 0.0 Erythrocyte morphology assessment SEE REFERENCE NORMAL Blood anisocytosis detection SLIGHT Complete blood count (CBC) with automated white blood cell (WBC) differential - 08/24/16 08:16 Blood automated leukocyte count 2.37 4.0-11.0 Erythrocytes 3.45 4.50-5.50 12.0-16.0;g/dL 11.5 13.5-17.0 Hematocrit 34.30 39.00-50.00 Automated erythrocyte mean corpuscular volume 99 80-100 Mean corpuscular hemoglobin (MCH) determination 33.3 26.0-34.0 Automated erythrocyte mean corpuscular 33.5 31.0-37.0 hemoglobin concentration measurement (mass/volume) Erythrocyte distribution width 17.6 11.8-15.6 Automated blood platelet count 144 150-450 Automated blood platelet mean volume measurement 11.2 6.0-9.5 Complete blood count, platelets with manual differential - 08/24/16 08:16 Total cell count 100 Blood segmented neutrophils percentage 15 51-67 Blood band neutrophil count as percentage of 0 0-6 total leukocytes LYMPHOCYTES % 58 20-46 Automated monocyte percentage 25 3-11 Eosinophil count auto 2 0-4 Basophils 0 0-2 NEUTROPHILS(SEG) 0.4 NEUTROPHILS # BANDS 0.0 Blood lymphocytes manual count 1.3 (number/volume) Automated blood monocyte count 0.5 Blood absolute eosinophil count 0.0 Basophils 0.0 Erythrocyte morphology assessment SEE REFERENCE NORMAL Blood anisocytosis detection SLIGHT Encounters ACCT Visit Discharge Status Pt. Type Provider Facility Loc./Unit Complaint No. Date/Time [id number] 07/12/2016 08/25/2016 DIS Outpatient Fransisca BALDERAS MD LAB LAB WORK [id number] 08:20:00 19:15:00 [facility] [id number] 08/24/2016 08/24/2016 CLS Outpatient Fransisca BALDERAS MD LAB [id number] 08:12:00 23:59:59 [place] [id number] 04/12/2016 07/11/2016 [place] Outpatient Fransisca BALDERAS MD LAB LAB WORK [id number] 09:01:00 00:01:00 [place] [id number] 01/05/2016 04/04/2016 [place] Outpatient Fransisca BALDERAS MD LAB LAB WORK [id number] 08:34:00 00:01:00 [place] [id number] 10/06/2015 01/04/2016 [place] Outpatient Fransisca BALDERAS MD LAB LAB WORK [id number] 08:38:00 00:01:00 [place] [id number] 07/07/2015 10/05/2015 DIS Outpatient Fransisca BALDERAS MD LAB [id number] 09:33:00 00:01:00 [place] [id number] 09/22/2015 09/22/2015 CLS Preadmit Fransisca BALDERAS MD LAB [id number] 15:06:00 23:59:59 [place] [id number] 07/21/2015 07/21/2015 CLS Preadmit Fransisca BALDERAS MD LAB [id number] 15:04:00 23:59:59 [place] [id number] 07/01/2015 07/01/2015 CLS Outpatient Fransisca BALDERAS MD LAB [id number] 17:45:00 23:59:59 [place] [id number] 04/30/2015 04/30/2015 CLS Outpatient Fransisca BALDERAS MD RAD [id number] 10:24:00 23:59:59 [place] [id number] 04/07/2015 04/07/2015 CLS Outpatient Fransisca BALDERAS MD RAD [id number] 08:15:00 23:59:59 [facility] ANEMIA ATT LIVER AND SPLEEN [id number] 04/01/2015 04/01/2015 CLS Outpatient SHERRIE MARTIN, Fransisca [facility] [id number] 16:58:00 23:59:59 [facility] [id number] 04/02/2013 06/28/2013 DIS Outpatient Maurice Andrade [facility] [id number] 10:57:00 00:01:00 , [facility] Ravi M [id number] 03/28/2013 03/28/2013 DIS Emergency [facility] ED [id number] 12:32:00 13:40:00 DO, [facility] A [id number] 03/26/2013 03/26/2013 DIS Emergency RUNDELL-L Andrade ED [id number] 08:47:00 09:38:00 MANDY MARTIN, [facility] [id number] 06/29/2013 Document [id number] 10:57:00 Registration [id number] 05/26/2012 Document [id number] 07:45:00 Registration
[2017-04-21] MEDS ORDERED: LORazepam 0.5 MG TABLET PO PRN (18:21)
[2017-04-21] MEDS ORDERED: HALOPERIDOL 0.5 MG TABLET PO PRN (18:21)
[2017-04-21] MEDS ORDERED: HALOPERIDOL 5 MG/ML INJECTION IM PRN (18:21)
[2017-04-21] MEDS: ATORVASTATIN 40 MG TABLET PO SCH (20:39)
[2017-04-21] MEDS: ZIPRASIDONE 20 MG CAPSULE PO SCH (20:44)
--- NOTE | 2017-04-22 09:50 | History & Physical Report ---
History of Present Illness Date: 04/22/17 Chief complaint: Behavior disturbance HPI: Patient is an 82-year-old male who is under the primary care Dr. Ravi Richards in [place]. Patient was recently hospitalized for 2 weeks at [facility] for influenza A and acute urinary tract infection. Once the acute viral and infection processes were resolved displayed underlying behaviors with cognitive decline, confusion and agitation. Prior to the acute hospitalization he did reside independently at home. Given the acute changes in mentation he was accepted to the [facility] unit under the care of Dr Echeverria for further cognitive evaluation and treatment. Vital signs are reviewed, pulse in the 60s, blood pressure this morning 166/77, room air saturations 98%. Don is seen this morning for initial examination. He is resting comfortably but does not appear to be in any acute distress. He is alert and pleasant and answers questions appropriately. He does inquire with his is? On examination he denies having any pain or feeling short of breath. Did speak with patient's daughter, Nelli-DPOA for collateral history and information. She reports that patient had been quite independent prior to acute hospitalization, however, she had noted some ongoing mental decline. She reports patient did live independently in his own home next to the daughter. He would drive every day at lunch to the [facility], however, spent the majority of the afternoons sleeping. Review of Systems ROS unobtainable: due to mental status Review of systems: Patient denies entire review of systems, however, unclear if this is accurate to mental status. Past Medical History Cognitive decline Hypertension Hyperlipidemia Myeloid syndrome GERD Depression History of TIA History of prostate cancer with radiation Surgical History: [place] teeth only Family History Updates: Father-CVA. Sister with multiple sclerosis - Social History Smoking status: Former smoker Substance use type: does not use Alcohol intake frequency: does not drink Housing: house Social history: Primary care provider, Dr. James Richards Oncologist Dr. Lyman Prior to admission at [place] patient resided independently at home next to his daughter, Nelli, who is his DPOA Medications Home Medications Medication Instructions Recorded Confirmed Type Aspirin 1 tab PO DAILY 04/21/17 04/21/17 History Atorvastatin [Lipitor] 1 tab PO Q2D 04/21/17 04/21/17 History Clopidogrel Bisulfate [Clopidogrel] 37.5 mg PO DAILY 04/21/17 04/21/17 History Cyanocobalamin (Vitamin B-12) 1 tab PO DAILY 04/21/17 04/21/17 History [Vitamin B-12] Ergocalciferol (Vitamin D2) 1 tab PO DAILY 04/21/17 04/21/17 History [Vitamin D2] Escitalopram [Lexapro] 1 tab PO DAILY 04/21/17 04/21/17 History Filgrastim-Sndz [Zarxio] 300 mcg IJ WEEKLY 04/21/17 04/21/17 History Loratadine [Claritin] 10 mg PO MOTU 04/21/17 04/21/17 History [place]-3/Dha/Epa/Fish Oil [Fish Oil 2 cap PO DAILY 04/21/17 04/21/17 History 1,000 mg Softgel] Ziprasidone HCl [Geodon] 20 mg PO ,04/21/17 04/21/17 History Allergies Allergy/AdvReac Type Severity Reaction Status Date / Time levofloxacin Allergy Verified 04/22/17 00:30 Exam Vital Signs: Temperature 98.2 F 04/21/17 19:40 Pulse Rate 67 04/21/17 19:40 Respiratory Rate 18 04/21/17 19:40 Blood Pressure 133/86 04/21/17 19:40 Pulse Oximetry 97 04/21/17 19:40 Height/Weight/BMI: Weight 82.7 kg - Constitutional Present: no acute distress, well nourished, well developed - Routine HEENT Exam Eye: Present: EOMI ENT: Present: mucous membranes moist, dentition normal - Routine Respiratory Exam Present: CTA bilaterally. Absent: wheezes - Routine Cardiovascular Exam Present: RRR, S1, S2. Absent: murmur - Routine Abdominal Exam Present: soft, normoactive bowel sounds, non distended. Absent: tenderness - Routine Extremities Exam Present: no edema, pulses intact - Routine Skin Exam Present: intact, dry, warm - Routine Neurological Exam Present: alert, CN II-XII intact, moving all extremities - Routine Psychiatric Exam Present: normal affect, cooperative Assessment and Plan (1) Dementia with behavioral disturbance Current visit: Yes Status: Acute Assessment and Plan: Impression Dementia with disturbances Reported cognitive decline Hypertension Hyperlipidemia GERD Myeloid dysplastic syndrome Depression Plan Agree with admission to [facility] unit under the care of Dr. Echeverria given psychiatric changes Any with chronic medications including Lipitor, aspirin, Plavix Will monitor occasional labs He has completed treatment for both urinary tract infection and influenza a. Encourage patient to purchase been in unit activities and provide a safe environment Did discuss with Nelli victor that will likely need to review discharge plans the patient is safe. May not be ideal for him to return to independent home. Appreciate medical consultation, the hospitalist services will continue to follow patient during his stay on [facility] unit. At time of discharge medical care will return to his primary care provider, Dr. James adam [place] - Physician Narrative Narrative: Date: 04/22/17 Time: 943 Hospital Course Summary Disclaimer: The visit summary below is not to be considered part of the above Progress Note. Hospital Course: Impression Dementia with disturbances Reported cognitive decline Hypertension Hyperlipidemia GERD Myeloid dysplastic syndrome Depression Plan Agree with admission to [facility] unit under the care of Dr. Echeverria given psychiatric changes Any with chronic medications including Lipitor, aspirin, Plavix Will monitor occasional labs He has completed treatment for both urinary tract infection and influenza a. Encourage patient to purchase been in unit activities and provide a safe environment Did discuss with Nelli victor that will likely need to review discharge plans the patient is safe. May not be ideal for him to return to independent home. Appreciate medical consultation, the hospitalist services will continue to follow patient during his stay on [facility] unit. At time of discharge medical care will return to his primary care provider, Dr. James Richards in [place]
[2017-04-22] MEDS: ZIPRASIDONE 20 MG CAPSULE PO SCH ×2 (09:59→17:08)
[2017-04-22] MEDS: CYANOCOBALAMIN (B-12) 500mcg TABLET PO SCH (09:59)
[2017-04-22] MEDS: ASPIRIN 81 MG CHEWABLE TABLET PO SCH (09:59)
[2017-04-22] MEDS: ESCITALOPRAM 10 MG TABLET PO SCH (09:59)
[2017-04-22] MEDS: CLOPIDOGREL 75 MG TABLET PO SCH (09:59)
[2017-04-22] MEDS ORDERED: ACETAMINOPHEN 325 MG TABLET PO PRN (10:54)
[2017-04-22] MEDS ORDERED: PNEUMOCOCCAL 23 VACCINE 0.5ml INJECTION IM ONE (10:57)
[2017-04-22 11:32] VITALS: BMI 24.7
--- NOTE | 2017-04-22 15:54 | 24 Hour Neuropsychiatic Eval ---
Date of Admission: 04/21/17 17:20 Chief complaint: "I need to get back to [place]" History of Present Illness: Patient is a 82-year-old , retired male who was admitted to [facility] on 04/21/17 secondary to recently increasing behaviors, agitation in the setting of dementia, along with VH. On interview, patient is cooperative but tense and curses frequently. He is oriented to person only, and states he doesn't know how/why he is here. He feels that he came with his father and they wanted to keep him, and now he needs to get back to [place]. He denies feeling depressed, SI, HI, AVH. He scoffs when I ask him if he has ever seen a psychiatrist. Per staff, patient slept 10+ hours overnight and eats all of his meals. Last night, he was very confused and anxious, believing that there had been a plane crash. Per hospitalist: "Patient was recently hospitalized for 2 weeks at [facility] for influenza A and acute urinary tract infection. Once the acute viral and infection processes were resolved displayed underlying behaviors with cognitive decline, confusion and agitation. Prior to the acute hospitalization he did reside independently at home. Did speak with patient's daughter, Nelli- SAMANTHA for collateral history and information. She reports that patient had been quite independent prior to acute hospitalization, however, she had noted some ongoing mental decline. She reports patient did live independently in his own home next to the daughter. He would drive every day at lunch [facility], however, spent the majority of the afternoons sleeping." Per SW: "Social work student contacted SAMANTHA (Nelli Dunham-daughter) via phone to gather information for PSH. Nelli confirmed pt's date to be 1935 , pt is 82 years old. Pt is a , his 03/13/2015 and pt has been struggling with 's . Nelli reports that pt began to isolate himself after his . Pt has two children Nelli and Benny (son). Nelli reports that she lives very close to pt in [place] and Benny lives in [place]. Pt has a good relationship with his family but has not spent as much time as he used to with them. Nelli reports that he does not like to leave his home very often and recently stopped going to family gatherings during the holidays. Nelli believes pt becomes overwhelmed because he is only oriented to self. Pt does not have any current use of alcohol or drugs, pt drank heavily in the past but stopped drinking 15 years ago. Pt does not use tobacco but did chew and smoke in the past. Pt is not currently receiving services from a mental health provider and has never been diagnosed or hospitalized in the past with a psychiatric or behavioral problem. Pt's mother had Alzheimer and Nelli reports she sees similar behaviors in pt as she did his mother. Nelli reports she does not believe pt is suicidal and has not been in the past. Pt has lived independently in [place], [place] for 35 years. Nelli states she would like to find placement for pt following discharge because she does not believe he is safe to live alone any longer. Pt received meals on wheels in the past but has recently been attending the local [employer] [place] for meals. 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 Pt is confirmed DNR." Depression: Isolating Oneself From Friends and Family, Sleeping More Than Usual Psychosis: Hallucinations/Illusions Dementia: Memory Impairment, Poor Executive Functioning PFS Patient Stated Medical History Dementia Yes Transient Ischemic Attacks ( Yes TIA) Hypertension Yes Hx Benign Prostatic Yes Hyperplasia Hx Renal Disease Yes Anemia Yes Osteoarthritis Yes Surgical History: [place] teeth only Family History: Not able to obtain from patient though family reports his mother had Alzheimer' s dementia - Social History Smoking status: Former smoker Substance use type: does not use Alcohol intake frequency: former alcohol drinker Household members: none (daughter lives next door) Current occupational status: retired Current residence: Apartment/Private Home Social history: Strengths: Patient is able to communicate verbally, has supportive family Review of Systems All systems: reviewed and no additional remarkable complaints except as stated - Constitutional Constitutional: Present: daytime sleepiness. Absent: headache(s) - EENMT Eyes: Absent: change in vision - Cardiovascular Cardiovascular: Absent: chest pain - Respiratory Respiratory: Absent: cough, dyspnea - Musculoskeletal Musculoskeletal: Absent: back pain - Neurological Neurological: Present: memory loss - Psychiatric Psychiatric: Present: abnormal sleep pattern, behavioral changes, visual hallucinations. Absent: homicidal ideation, suicidal ideation Mental Status Exam Vitals: Last Vital Signs Temp 97.2 F 04/22/17 09:00 Pulse 58 L 04/22/17 09:00 Resp 16 04/22/17 09:00 BP 166/77 H 04/22/17 09:00 Pulse Ox 98 04/22/17 09:00 Height: 1.83 m Weight: 82.7 kg - Mental Status Exam Muscle Strength/Tone: Normal Dressing: Casual Grooming: Fair Attitude: Tense Motor Activity: Retardation Eye Contact: Fair Speech: Slowed Volume: Loud Rhythm: Other (Brief responses) Sensory: Alert Orientation: Disoriented to time, Disoriented to place, Disoriented to situation , Oriented to person Mood: Neutral Affect: Anxious (irritable) Rate of Thoughts: Delayed Thought Organization: Confused Associations: Illogical Abstract Reasoning: Poor abstract reasoning Thought Content: Other (Worry about father, why he is here, etc.) Perception/Psychotic: Psychotic Current Hallucinations: Visual (reported by family, staff) Language: Naming Impaired Fund of Knowledge: Poor fund of knowledge Memory: Poor-recent Suicidal Ideation: Denies Homicidal Ideation: Denies Insight: Impaired Judgement: Impaired Impulse Control: Other (Limited) Assessment and Plan (1) Psychosis Qualifiers: Psychosis type: unspecified psychosis type Qualified Code(s): F29 - Unspecified psychosis not due to a substance or known physiological condition Current visit: Yes Status: Acute (2) Major neurocognitive disorder Problem details: moderate, with behavioral disturbance R/O Alzheimer's disease R/O Lewy Body disease R/O Mood disorder with psychotic features Current visit: Yes Status: Acute Admit to [facility] for psychiatric evaluation and stabilization. Maintain safety and elopement precautions. Will order following labs: CBC, CMP, UA, HgbA1c, lipid panel. TSH and Vitamin B12 WNL prior to admission. Have consulted hospitalist for optimization of medical comorbidities. Will continue to observe patient's behavior on unit and consult with DPOA prior to making medication changes. Patient will need placement in LTC facility as he can no longer function independently in the home.
--- NOTE | 2017-04-23 10:11 | Neuropsych Progress Note ---
[facility] Subjective Date: 04/23/17 - Sujective/Severity of Illness Medications: Acetaminophen (Tylenol) 325 - 650 mg PO Q5H PRN PRN Reason: Discomfort Last Admin: 04/22/17 10:58 Dose: 650 mg Aspirin (Asa) 81 mg PO DAILY [facility] Last Admin: 04/22/17 09:59 Dose: 81 mg Atorvastatin Calcium (Lipitor) 40 mg PO Q2D [facility] Last Admin: 04/21/17 20:39 Dose: 40 mg Clopidogrel Bisulfate (Plavix) 37.5 mg PO DAILY [facility] Last Admin: 04/22/17 09:59 Dose: 37.5 mg Cyanocobalamin (Vit. B-12) 500 mcg PO DAILY [facility] Last Admin: 04/22/17 09:59 Dose: 500 mcg Escitalopram Oxalate (Lexapro) 10 mg PO DAILY [facility] Last Admin: 04/22/17 09:59 Dose: 10 mg Haloperidol (Haldol) 0.5 mg PO Q6H PRN PRN Reason: Extreme agitation Haloperidol Lactate (Haldol) 0.5 mg IM Q6H PRN PRN Reason: Extreme agitation Lorazepam (Ativan) 0.5 mg PO Q6H PRN PRN Reason: Extreme agitation Lorazepam (Ativan Inj) 0.5 mg IM Q6H PRN PRN Reason: Extreme agitation Ziprasidone (Geodon) 20 mg PO BIDWM [facility] Last Admin: 04/22/17 17:08 Dose: 20 mg Subjective: Pt seen and chart examined. Nursing reports pt slept 2 hours last night and has a good appetite. On face to face the pt is pleasant but confused. He is only oriented to self. He states his mood is stable and he denies feeling depressed. Tolerating meds. Denies pain. Start Time: 09:00 Stop Time: 09:15 Mental Status Exam Vitals: Last Vital Signs Temp 97.2 F 04/23/17 01:00 Pulse 56 L 04/23/17 01:00 Resp 17 04/23/17 01:00 BP 145/78 H 04/23/17 01:00 Pulse Ox 98 04/23/17 01:00 Height: 1.83 m Weight: 82.7 kg - Mental Status Exam Muscle Strength/Tone: Normal Dressing: Casual Grooming: Fair Attitude: Tense Motor Activity: Retardation Eye Contact: Fair Speech: Slowed Volume: Loud Rhythm: Other (Brief responses) Orientation: Disoriented to time, Disoriented to place, Disoriented to situation , Oriented to person Mood: Neutral Rate of Thoughts: Delayed Thought Organization: Confused Associations: Illogical Abstract Reasoning: Poor abstract reasoning Thought Content: Other (Worry about father, why he is here, etc.) Perception/Psychotic: Psychotic Current Hallucinations: Visual (reported by family, staff) Language: Naming Impaired Fund of Knowledge: Poor fund of knowledge Memory: Poor-recent Suicidal Ideation: Denies Homicidal Ideation: Denies Insight: Impaired Judgement: Impaired Impulse Control: Other (Limited) Assessment and Plan (1) Major neurocognitive disorder Problem details: moderate, with behavioral disturbance R/O Alzheimer's disease R/O Lewy Body disease R/O Mood disorder with psychotic features Current visit: Yes Status: Acute (2) Psychosis Qualifiers: Psychosis type: unspecified psychosis type Qualified Code(s): F29 - Unspecified psychosis not due to a substance or known physiological condition Current visit: Yes Status: Acute Hospital Course Summary Disclaimer: The visit summary below is not to be considered part of the above Progress Note. Hospital Course: Impression Dementia with disturbances Reported cognitive decline Hypertension Hyperlipidemia GERD Myeloid dysplastic syndrome Depression Plan Agree with admission to [facility] unit under the care of Dr. Echeverria given psychiatric changes Any with chronic medications including Lipitor, aspirin, Plavix Will monitor occasional labs He has completed treatment for both urinary tract infection and influenza a. Encourage patient to purchase been in unit activities and provide a safe environment Did discuss with daughter, Nelli SINGH that will likely need to review discharge plans the patient is safe. May not be ideal for him to return to independent home. Appreciate medical consultation, the hospitalist services will continue to follow patient during his stay on [facility] unit. At time of discharge medical care will return to his primary care provider, Dr. James Richards in [place] 04/23/2017 Psych- Pt did not sleep well but has not had any behaviors. Will contact family to discuss starting PRN sleep aid
[2017-04-23] MEDS: ESCITALOPRAM 10 MG TABLET PO SCH (12:21)
[2017-04-23] MEDS: CYANOCOBALAMIN (B-12) 500mcg TABLET PO SCH (12:21)
[2017-04-23] MEDS: ASPIRIN 81 MG CHEWABLE TABLET PO SCH (12:21)
[2017-04-23] MEDS: CLOPIDOGREL 75 MG TABLET PO SCH (12:21)
[2017-04-23] MEDS: ZIPRASIDONE 20 MG CAPSULE PO SCH ×2 (12:21→17:19)
[2017-04-23] MEDS: ATORVASTATIN 40 MG TABLET PO SCH (20:21)
[2017-04-24] MEDS: ASPIRIN 81 MG CHEWABLE TABLET PO SCH (10:32)
[2017-04-24] MEDS: ESCITALOPRAM 10 MG TABLET PO SCH (10:32)
[2017-04-24] MEDS: ZIPRASIDONE 20 MG CAPSULE PO SCH ×2 (10:32→17:39)
[2017-04-24] MEDS: CYANOCOBALAMIN (B-12) 500mcg TABLET PO SCH (10:33)
[2017-04-24] MEDS: CLOPIDOGREL 75 MG TABLET PO SCH (11:26)
--- NOTE | 2017-04-24 11:31 | Neuropsych Progress Note ---
[facility] Subjective Date: 04/24/17 - Sujective/Severity of Illness Medications: Acetaminophen (Tylenol) 325 - 650 mg PO Q5H PRN PRN Reason: Discomfort Last Admin: 04/22/17 10:58 Dose: 650 mg Aspirin (Asa) 81 mg PO DAILY [facility] Last Admin: 04/24/17 10:32 Dose: 81 mg Atorvastatin Calcium (Lipitor) 40 mg PO Q2D [facility] Last Admin: 04/23/17 20:21 Dose: 40 mg Clopidogrel Bisulfate (Plavix) 37.5 mg PO DAILY [facility] Last Admin: 04/24/17 11:26 Dose: 37.5 mg Cyanocobalamin (Vit. B-12) 500 mcg PO DAILY [facility] Last Admin: 04/24/17 10:33 Dose: 500 mcg Escitalopram Oxalate (Lexapro) 10 mg PO DAILY [facility] Last Admin: 04/24/17 10:32 Dose: 10 mg Haloperidol (Haldol) 0.5 mg PO Q6H PRN PRN Reason: Extreme agitation Last Admin: 04/23/17 12:49 Dose: 0.5 mg Haloperidol Lactate (Haldol) 0.5 mg IM Q6H PRN PRN Reason: Extreme agitation Lorazepam (Ativan) 0.5 mg PO Q6H PRN PRN Reason: Extreme agitation Last Admin: 04/23/17 12:49 Dose: 0.5 mg Lorazepam (Ativan Inj) 0.5 mg IM Q6H PRN PRN Reason: Extreme agitation Ziprasidone (Geodon) 20 mg PO BIDWM [facility] Last Admin: 04/24/17 10:32 Dose: 20 mg Subjective: Pt seen and chart examined. Nursing reports pt slept better and has a good appetite. Pt is confused at times and needs redirection but is not physically aggressive. On face to face the pt is pleasant but confused. he is only oriented to self. he denies any pain and voices no concerns at this time. Tolerating meds Start Time: 11:00 Stop Time: 11:15 Mental Status Exam Vitals: Last Vital Signs Temp 97.6 F 04/24/17 09:00 Pulse 66 04/24/17 09:00 Resp 18 04/24/17 09:00 BP 134/72 04/24/17 09:00 Pulse Ox 98 04/24/17 09:00 Height: 1.83 m Weight: 82.7 kg - Mental Status Exam Muscle Strength/Tone: Normal Dressing: Casual Grooming: Fair Attitude: Tense Motor Activity: Retardation Eye Contact: Fair Speech: Slowed Volume: Loud Rhythm: Other (Brief responses) Orientation: Disoriented to time, Disoriented to place, Disoriented to situation , Oriented to person Mood: Neutral Rate of Thoughts: Delayed Thought Organization: Confused Associations: Illogical Abstract Reasoning: Poor abstract reasoning Thought Content: Other (Worry about father, why he is here, etc.) Perception/Psychotic: Psychotic Current Hallucinations: Visual (reported by family, staff) Language: Naming Impaired Fund of Knowledge: Poor fund of knowledge Memory: Poor-recent Suicidal Ideation: Denies Homicidal Ideation: Denies Insight: Impaired Judgement: Impaired Impulse Control: Other (Limited) - Laboratory Result Diagrams: 04/23/17 10:01 04/23/17 10:01 Laboratory Results - last 24 hr 04/23/17 10:01 Turbidity < 20 Sodium 144 Potassium 4.0 Chloride 110 H Carbon Dioxide 25 Anion Gap 9 BUN 33.0 H Creatinine 1.4 GFR Calculation 48 BUN/Creatinine Ratio 24 Glucose 92 Calculated Osmolality 284 H Calcium 9.3 Total Bilirubin 0.50 Icterus Index < 2 AST 35 ALT 55 Alkaline Phosphatase 55 Total Protein 7.2 Albumin 4.1 Globulin 3.1 Albumin/Globulin Ratio 1.3 Triglycerides 75 Cholesterol 119 L LDL Cholesterol, Calc 79.0 VLDL Cholesterol 15.0 HDL Cholesterol 25 L Cholesterol/HDL Ratio 4.8 Specimen Hemolysis < 15 Assessment and Plan (1) Major neurocognitive disorder Problem details: moderate, with behavioral disturbance R/O Alzheimer's disease R/O Lewy Body disease R/O Mood disorder with psychotic features Current visit: Yes Status: Acute (2) Psychosis Qualifiers: Psychosis type: unspecified psychosis type Qualified Code(s): F29 - Unspecified psychosis not due to a substance or known physiological condition Current visit: Yes Status: Acute Hospital Course Summary Disclaimer: The visit summary below is not to be considered part of the above Progress Note. Hospital Course: Impression Dementia with disturbances Reported cognitive decline Hypertension Hyperlipidemia GERD Myeloid dysplastic syndrome Depression Plan Agree with admission to [facility] unit under the care of Dr. Echeverria given psychiatric changes Any with chronic medications including Lipitor, aspirin, Plavix Will monitor occasional labs He has completed treatment for both urinary tract infection and influenza a. Encourage patient to purchase been in unit activities and provide a safe environment Did discuss with daughter, Nelli SINGH that will likely need to review discharge plans the patient is safe. May not be ideal for him to return to independent home. Appreciate medical consultation, the hospitalist services will continue to follow patient during his stay on [facility] unit. At time of discharge medical care will return to his primary care provider, Dr. James Richards in [place] 04/23/2017 Psych- Pt did not sleep well but has not had any behaviors. Will contact family to discuss starting PRN sleep aid 04/24/2017 Sleeping better. Remains confused but no aggression. Continue current care
[2017-04-24] MEDS: ATORVASTATIN 40 MG TABLET PO SCH (20:07)
[2017-04-25] MEDS: CLOPIDOGREL 75 MG TABLET PO SCH (10:04)
[2017-04-25] MEDS: ESCITALOPRAM 10 MG TABLET PO SCH (10:04)
[2017-04-25] MEDS: ASPIRIN 81 MG CHEWABLE TABLET PO SCH (10:04)
[2017-04-25] MEDS: CYANOCOBALAMIN (B-12) 500mcg TABLET PO SCH (10:04)
[2017-04-25] MEDS: ZIPRASIDONE 20 MG CAPSULE PO SCH ×2 (10:04→17:47)
--- NOTE | 2017-04-25 14:00 | Progress Note ---
- Date 04/25/17 Subjective: Gaurang is seen today in follow up. He reports that he is having a good day. He reports that he completed lunch and came back to his room to take a nap. Denies having pain or feeling short of breath. BP- 124/72. Objective Vital signs: Temperature 97.6 F 04/25/17 09:00 Pulse Rate 54 L 04/25/17 09:00 Respiratory Rate 16 04/25/17 09:00 Blood Pressure 124/72 04/25/17 09:00 Pulse Oximetry 99 04/25/17 09:00 Height/Weight/BMI: Height 1.83 m Weight 82.7 kg Body Mass Index 24.7 - Constitutional Present: no acute distress, well nourished, well developed - Routine HEENT Exam Eye: Present: EOMI ENT: Present: mucous membranes moist, dentition normal - Routine Respiratory Exam Present: CTA bilaterally. Absent: wheezes - Routine Cardiovascular Exam Present: RRR, S1, S2. Absent: murmur - Routine Abdominal Exam Present: soft, normoactive bowel sounds, non distended. Absent: tenderness - Routine Extremities Exam Present: no edema - Routine Skin Exam Present: intact, dry, warm - Routine Neurological Exam Present: alert, CN II-XII intact - Routine Lymphatic Exam Lymphatic: Absent: adenopathy - Routine Psychiatric Exam Present: cooperative Results - Labs CBC & Chem 7: 04/25/17 13:09 04/25/17 13:09 Assessment and Plan (1) Dementia with behavioral disturbance Current visit: Yes Status: Acute Assessment and Plan: Impression Dementia with disturbances Reported cognitive decline Hypertension Hyperlipidemia GERD Myeloid dysplastic syndrome Depression Plan Overall doing well medically. Will repeat labs today- monitor blood counts, renal function and electrolytes Encourage oral intake Continue on chronic medications including Lipitor, aspirin, Plavix Psychiatric care as per Dr Echeverria - Physician Narrative Narrative: Date: 04/25/17 Time: 6176 Hospital Course Summary Disclaimer: The visit summary below is not to be considered part of the above Progress Note. Hospital Course: Impression Dementia with disturbances Reported cognitive decline Hypertension Hyperlipidemia GERD Myeloid dysplastic syndrome Depression Plan Agree with admission to [facility] under the care of Dr. Echeverria given psychiatric changes Any with chronic medications including Lipitor, aspirin, Plavix Will monitor occasional labs He has completed treatment for both urinary tract infection and influenza a. Encourage patient to purchase been in unit activities and provide a safe environment Did discuss with daughter, Nelli SINGH that will likely need to review discharge plans the patient is safe. May not be ideal for him to return to independent home. Appreciate medical consultation, the hospitalist services will continue to follow patient during his stay on [facility]. At time of discharge medical care will return to his primary care provider, Dr. James Richards in [place] 04/23/2017 Psych- Pt did not sleep well but has not had any behaviors. Will contact family to discuss starting PRN sleep aid 04/24/2017 Sleeping better. Remains confused but no aggression. Continue current care 04/25 Overall doing well medically.Will repeat labs today- monitor blood counts, renal function and electrolytes. Encourage oral intake. Continue on chronic medications including Lipitor, aspirin, Plavix. Psychiatric care as per Dr Echeverria
--- NOTE | 2017-04-25 14:00 | Neuropsych Progress Note ---
[facility] Subjective Date: 04/25/17 - Sujective/Severity of Illness Medications: Acetaminophen (Tylenol) 325 - 650 mg PO Q5H PRN PRN Reason: Discomfort Last Admin: 04/22/17 10:58 Dose: 650 mg Aspirin (Asa) 81 mg PO DAILY [facility] Last Admin: 04/25/17 10:04 Dose: 81 mg Atorvastatin Calcium (Lipitor) 40 mg PO Q2D [facility] Last Admin: 04/24/17 20:07 Dose: 40 mg Clopidogrel Bisulfate (Plavix) 37.5 mg PO DAILY [facility] Last Admin: 04/25/17 10:04 Dose: 37.5 mg Cyanocobalamin (Vit. B-12) 500 mcg PO DAILY [facility] Last Admin: 04/25/17 10:04 Dose: 500 mcg Escitalopram Oxalate (Lexapro) 10 mg PO DAILY [facility] Last Admin: 04/25/17 10:04 Dose: 10 mg Haloperidol (Haldol) 0.5 mg PO Q6H PRN PRN Reason: Extreme agitation Last Admin: 04/23/17 12:49 Dose: 0.5 mg Haloperidol Lactate (Haldol) 0.5 mg IM Q6H PRN PRN Reason: Extreme agitation Lorazepam (Ativan) 0.5 mg PO Q6H PRN PRN Reason: Extreme agitation Last Admin: 04/23/17 12:49 Dose: 0.5 mg Lorazepam (Ativan Inj) 0.5 mg IM Q6H PRN PRN Reason: Extreme agitation Ziprasidone (Geodon) 20 mg PO BIDWM [facility] Last Admin: 04/25/17 10:04 Dose: 20 mg Subjective: Patient seen and chart reviewed. Case discussed with treatment team. On interview, patient reports his mood is good and that he feels well physically. He does not have any insight into reasons for hospitalization. Patient denies any SI, HI or AVH. Patient denies any adverse side effects related to psychotropic medications. Nursing staff report patient asks repetitive questions but otherwise, has not had significant behavioral difficulties on the unit. Patient has been adherent with medications. Patient slept 8.75 hours overnight. VSS. Patient is eating well. Psychotropic PRNs required in the past 24 hours: none. Looking into placement at [facility]. Start Time: 09:00 Stop Time: 09:20 Mental Status Exam Vitals: Last Vital Signs Temp 97.6 F 04/25/17 09:00 Pulse 54 L 04/25/17 09:00 Resp 16 04/25/17 09:00 BP 124/72 04/25/17 09:00 Pulse Ox 99 04/25/17 09:00 Height: 1.83 m Weight: 82.7 kg - Mental Status Exam Muscle Strength/Tone: Normal Dressing: Casual Grooming: Fair Attitude: Cooperative Motor Activity: Retardation Eye Contact: Fair Speech: Slowed Volume: Normal Rhythm: Other (Brief responses) Orientation: Disoriented to time, Disoriented to place, Disoriented to situation , Oriented to person Mood: Euthymic Affect: Relaxed Rate of Thoughts: Delayed Thought Organization: Confused Associations: Illogical Abstract Reasoning: Poor abstract reasoning Thought Content: Other (No abnormal thought content elicited during interview) Perception/Psychotic: Hx psychosis, not current Language: Naming Impaired Fund of Knowledge: Poor fund of knowledge Memory: Poor-recent Suicidal Ideation: Denies Homicidal Ideation: Denies Insight: Impaired Judgement: Impaired Impulse Control: Fair - Laboratory Result Diagrams: 04/25/17 13:09 04/25/17 13:09 Laboratory Results - last 24 hr 04/23/17 04/25/17 04/25/17 10:01 13:09 13:09 WBC 3.0 L RBC 2.93 L Hgb 9.6 L Hct 30.1 L MCV 102.7 H MCH 32.8 MCHC 31.9 RDW Std Deviation 56.3 H Plt Count 142 MPV 11.8 Immature Gran % (Auto) 0.0 Neut % (Auto) 41.1 Lymph % (Auto) 32.3 [place] % (Auto) 24.6 H Eos % (Auto) 2.0 Baso % (Auto) 0.0 Neut # (Auto) 1.2 L Lymph # (Auto) 1.0 [place] # (Auto) 0.7 Eos # (Auto) 0.1 Baso # (Auto) 0.0 Abs Immat Gran (auto) 0.00 Turbidity < 20 Sodium 142 Potassium 4.0 Chloride 108 H Carbon Dioxide 25 Anion Gap 9 BUN 36.0 H Creatinine 1.8 H D GFR Calculation 36 BUN/Creatinine Ratio 20 Glucose 107 Calculated Osmolality 281 H Calcium 9.1 Icterus Index < 2 Folate 11.3 Specimen Hemolysis < 15 Assessment and Plan (1) Psychosis Qualifiers: Qualified Code(s): F29 - Unspecified psychosis not due to a substance or known physiological condition Current visit: Yes Status: Acute (2) Major neurocognitive disorder Problem details: moderate, with behavioral disturbance R/O Alzheimer's disease R/O Lewy Body disease R/O Mood disorder with psychotic features Current visit: Yes Status: Acute Continue current care, monitor for recurrence of AVH; BELEN and CM working on arranging placement at [facility] [place] after discharge. Hospital Course Summary Disclaimer: The visit summary below is not to be considered part of the above Progress Note. Hospital Course: Impression Dementia with disturbances Reported cognitive decline Hypertension Hyperlipidemia GERD Myeloid dysplastic syndrome Depression Plan Agree with admission to [facility] unit under the care of Dr. Echeverria given psychiatric changes Any with chronic medications including Lipitor, aspirin, Plavix Will monitor occasional labs He has completed treatment for both urinary tract infection and influenza a. Encourage patient to purchase been in unit activities and provide a safe environment Did discuss with daughter, Nelli SINGH that will likely need to review discharge plans the patient is safe. May not be ideal for him to return to independent home. Appreciate medical consultation, the hospitalist services will continue to follow patient during his stay on [facility] unit. At time of discharge medical care will return to his primary care provider, Dr. James Richards in [place] 04/23/2017 Psych- Pt did not sleep well but has not had any behaviors. Will contact family to discuss starting PRN sleep aid 04/24/2017 Sleeping better. Remains confused but no aggression. Continue current care 04/25/17 Psych: Continue current care, monitor for recurrence of AVH; BELEN and CM working on arranging placement at [facility] [place] after. discharge.
[2017-04-25] MEDS: ATORVASTATIN 40 MG TABLET PO SCH (19:58)
[2017-04-26] MEDS: ZIPRASIDONE 20 MG CAPSULE PO SCH ×2 (11:27→17:29)
[2017-04-26] MEDS: ASPIRIN 81 MG CHEWABLE TABLET PO SCH (11:27)
[2017-04-26] MEDS: ESCITALOPRAM 10 MG TABLET PO SCH (11:27)
[2017-04-26] MEDS: CYANOCOBALAMIN (B-12) 500mcg TABLET PO SCH (11:27)
[2017-04-26] MEDS: CLOPIDOGREL 75 MG TABLET PO SCH (11:27)
--- NOTE | 2017-04-26 17:58 | Neuropsych Progress Note ---
[facility] Subjective Date: 04/26/17 - Sujective/Severity of Illness Medications: Acetaminophen (Tylenol) 325 - 650 mg PO Q5H PRN PRN Reason: Discomfort Last Admin: 04/22/17 10:58 Dose: 650 mg Aspirin (Asa) 81 mg PO DAILY [facility] Last Admin: 04/26/17 11:27 Dose: 81 mg Atorvastatin Calcium (Lipitor) 40 mg PO Q2D [facility] Last Admin: 04/25/17 19:58 Dose: 40 mg Clopidogrel Bisulfate (Plavix) 37.5 mg PO DAILY [facility] Last Admin: 04/26/17 11:27 Dose: 37.5 mg Cyanocobalamin (Vit. B-12) 500 mcg PO DAILY [facility] Last Admin: 04/26/17 11:27 Dose: 500 mcg Escitalopram Oxalate (Lexapro) 10 mg PO DAILY [facility] Last Admin: 04/26/17 11:27 Dose: 10 mg Haloperidol (Haldol) 0.5 mg PO Q6H PRN PRN Reason: Extreme agitation Last Admin: 04/23/17 12:49 Dose: 0.5 mg Haloperidol Lactate (Haldol) 0.5 mg IM Q6H PRN PRN Reason: Extreme agitation Lorazepam (Ativan) 0.5 mg PO Q6H PRN PRN Reason: Extreme agitation Last Admin: 04/23/17 12:49 Dose: 0.5 mg Lorazepam (Ativan Inj) 0.5 mg IM Q6H PRN PRN Reason: Extreme agitation Oseltamivir Phosphate (Tamiflu) 30 mg PO DAILY [facility] Stop: 05/01/17 09:01 Last Admin: 04/26/17 11:28 Dose: 30 mg Ziprasidone (Geodon) 20 mg PO BIDWM [facility] Last Admin: 04/26/17 17:29 Dose: 20 mg Subjective: Patient seen and chart reviewed. Case discussed with treatment team. On interview, patient reports his mood is good and that he feels well physically. He does not have any insight into reasons for hospitalization. Patient denies any SI, HI or AVH. Patient denies any adverse side effects related to psychotropic medications. No EPS noted on physical exam. Nursing staff report patient asks repetitive questions but otherwise, has not had significant behavioral difficulties on the unit. Patient has been adherent with medications. Patient slept 8 hours overnight. VSS. Patient is eating well. Psychotropic PRNs required in the past 24 hours: none. Looking into placement at [facility] -- they are to come assess him on unit. Start Time: 09:00 Stop Time: 09:20 Mental Status Exam Vitals: Last Vital Signs Temp 97.8 F 04/26/17 15:34 Pulse 65 04/26/17 15:34 Resp 16 04/26/17 15:34 BP 148/73 H 04/26/17 15:34 Pulse Ox 99 04/26/17 15:34 Height: 1.83 m Weight: 82.7 kg - Mental Status Exam Muscle Strength/Tone: Normal Dressing: Casual Grooming: Fair Attitude: Cooperative Motor Activity: Retardation Eye Contact: Fair Speech: Slowed Volume: Normal Rhythm: Other (Brief responses) Orientation: Disoriented to time, Disoriented to place, Disoriented to situation , Oriented to person Mood: Euthymic Rate of Thoughts: Delayed Thought Organization: Confused Associations: Illogical Abstract Reasoning: Poor abstract reasoning Thought Content: Other (No abnormal thought content elicited during interview) Perception/Psychotic: Hx psychosis, not current Current Hallucinations: Visual (reported by family, staff) Language: Naming Impaired Fund of Knowledge: Poor fund of knowledge Memory: Poor-recent Suicidal Ideation: Denies Homicidal Ideation: Denies Insight: Impaired Judgement: Impaired Impulse Control: Fair - Laboratory Result Diagrams: 04/25/17 13:09 04/25/17 13:09 Assessment and Plan (1) Psychosis Qualifiers: Psychosis type: unspecified psychosis type Qualified Code(s): F29 - Unspecified psychosis not due to a substance or known physiological condition Current visit: Yes Status: Resolved (2) Major neurocognitive disorder Problem details: Alzheimer's probable, moderate, with behavioral disturbance Current visit: Yes Status: Acute Continue current care; [facility] to assess patient for their care facility. Hospital Course Summary Disclaimer: The visit summary below is not to be considered part of the above Progress Note. Hospital Course: Impression Dementia with disturbances Reported cognitive decline Hypertension Hyperlipidemia GERD Myeloid dysplastic syndrome Depression Plan Agree with admission to [facility] unit under the care of Dr. Echeverria given psychiatric changes Any with chronic medications including Lipitor, aspirin, Plavix Will monitor occasional labs He has completed treatment for both urinary tract infection and influenza a. Encourage patient to purchase been in unit activities and provide a safe environment Did discuss with daughter, Nelli SINGH that will likely need to review discharge plans the patient is safe. May not be ideal for him to return to independent home. Appreciate medical consultation, the hospitalist services will continue to follow patient during his stay on [facility] unit. At time of discharge medical care will return to his primary care provider, Dr. James Richards in [place] 04/23/2017 Psych- Pt did not sleep well but has not had any behaviors. Will contact family to discuss starting PRN sleep aid 04/24/2017 Sleeping better. Remains confused but no aggression. Continue current care 04/25/17 Psych: Continue current care, monitor for recurrence of AVH; SW and CM working on arranging placement at [facility] after. discharge. 04/26/17 Psych: Continue current care; [facility] to assess patient for their care facility.
[2017-04-27] MEDS: ESCITALOPRAM 10 MG TABLET PO SCH (11:15)
[2017-04-27] MEDS: CYANOCOBALAMIN (B-12) 500mcg TABLET PO SCH (11:16)
[2017-04-27] MEDS: CLOPIDOGREL 75 MG TABLET PO SCH (11:18)
[2017-04-27] MEDS: ASPIRIN 81 MG CHEWABLE TABLET PO SCH (11:18)
[2017-04-27] MEDS: ZIPRASIDONE 20 MG CAPSULE PO SCH ×2 (11:18→17:19)
[2017-04-27 16:31] VITALS: O2SAT 97
--- NOTE | 2017-04-27 17:07 | Progress Note ---
- Date 04/27/17 Subjective: Salvador is seen today in his room and is very anxious that he can't find his light weight jacket. He expresses sadness that he is being moved to a nursing facility tomorrow "by his son". He denies any other concerns or complaints. No chest pain, shortness of breath, abdominal pain, nausea, vomiting or dysuria. His appetite is stable and bowels are moving. Repeat labs today were stable. SCr improved to 1.3. Nursing reports that he has been more agitated this afternoon as he prepares for discharge tomorrow. Objective Vital signs: Temperature 98.0 F 04/27/17 16:00 Pulse Rate 60 04/27/17 16:00 Respiratory Rate 20 04/27/17 16:00 Blood Pressure 144/70 H 04/27/17 16:00 Pulse Oximetry 97 04/27/17 16:00 Height/Weight/BMI: Height 6 ft Weight 182 lb 5.156 oz Body Mass Index 24.7 - Constitutional Present: no acute distress, agitated - Routine HEENT Exam Head: Present: normocephalic, atraumatic Eye: Present: PERRL. Absent: conjunctival icterus ENT: Present: mucous membranes moist - Routine Respiratory Exam Present: CTA bilaterally - Routine Cardiovascular Exam Present: RRR, S1, S2 - Routine Abdominal Exam Present: soft, normoactive bowel sounds, non distended, non tender - Routine Extremities Exam Present: no edema, non tender, full ROM, pulses intact - Routine Back/Spine/Pelvis Exam Back/Spine: Present: full ROM. Absent: vertebral tenderness - Routine Musculoskeletal Exam Musculoskeletal: Present: moving extremities well - Routine Skin Exam Present: dry, warm. Absent: jaundice Comments: afebrile. - Routine Neurological Exam Present: alert, moving all extremities, normal speech - Routine Lymphatic Exam Lymphatic: Absent: lymphedema - Routine Psychiatric Exam Present: cooperative, agitated Results - Labs CBC & Chem 7: 04/27/17 07:13 04/27/17 07:13 Assessment and Plan (1) Dementia with behavioral disturbance Current visit: Yes Status: Acute Assessment and Plan: Impression Dementia with disturbances Reported cognitive decline Hypertension Hyperlipidemia GERD Myeloid dysplastic syndrome Depression Plan - 04/27/17 Overall, patient is doing well medically. Anticipate discharge tomorrow, 04/28/17 , to nursing facility. Repeat labs were stable. Recommend follow up with PCP as needed. Resuscitation Status: Do Not Resuscitate - Time spent with patient Time with patient PN: 25 minutes - Physician Narrative Physician: Riley Reynolds MD Narrative: Date: 04/27/17 Time: 1703 Hospital Course Summary Disclaimer: The visit summary below is not to be considered part of the above Progress Note. Hospital Course: Impression Dementia with disturbances Reported cognitive decline Hypertension Hyperlipidemia GERD Myeloid dysplastic syndrome Depression Plan Agree with admission to [facility] under the care of Dr. Echeverria given psychiatric changes Any with chronic medications including Lipitor, aspirin, Plavix Will monitor occasional labs He has completed treatment for both urinary tract infection and influenza a. Encourage patient to purchase been in unit activities and provide a safe environment Did discuss with daughter, Nelli SINGH that will likely need to review discharge plans the patient is safe. May not be ideal for him to return to independent home. Appreciate medical consultation, the hospitalist services will continue to follow patient during his stay on [facility]. At time of discharge medical care will return to his primary care provider, Dr. James Richards in [place] 04/23/2017 Psych- Pt did not sleep well but has not had any behaviors. Will contact family to discuss starting PRN sleep aid 04/24/2017 Sleeping better. Remains confused but no aggression. Continue current care 04/25/17 Psych: Continue current care, monitor for recurrence of AVH; SW and CM working on arranging placement at [facility] after. discharge. 04/26/17 Psych: Continue current care; [facility] to assess patient for their care facility. Plan - 04/27/17 Overall, patient is doing well medically. Anticipate discharge tomorrow, 04/28/17 , to nursing facility. Repeat labs were stable. Recommend follow up with PCP as needed.
--- NOTE | 2017-04-27 19:49 | Neuropsych Progress Note ---
[facility] Subjective Date: 04/28/17 - Sujective/Severity of Illness Medications: Acetaminophen (Tylenol) 325 - 650 mg PO Q5H PRN PRN Reason: Discomfort Last Admin: 04/22/17 10:58 Dose: 650 mg Aspirin (Asa) 81 mg PO DAILY [facility] Last Admin: 04/27/17 11:18 Dose: 81 mg Atorvastatin Calcium (Lipitor) 40 mg PO Q2D [facility] Last Admin: 04/25/17 19:58 Dose: 40 mg Clopidogrel Bisulfate (Plavix) 37.5 mg PO DAILY [facility] Last Admin: 04/27/17 11:18 Dose: 37.5 mg Cyanocobalamin (Vit. B-12) 500 mcg PO DAILY [facility] Last Admin: 04/27/17 11:16 Dose: 500 mcg Escitalopram Oxalate (Lexapro) 10 mg PO DAILY [facility] Last Admin: 04/27/17 11:15 Dose: 10 mg Haloperidol (Haldol) 0.5 mg PO Q6H PRN PRN Reason: Extreme agitation Last Admin: 04/23/17 12:49 Dose: 0.5 mg Haloperidol Lactate (Haldol) 0.5 mg IM Q6H PRN PRN Reason: Extreme agitation Lorazepam (Ativan) 0.5 mg PO Q6H PRN PRN Reason: Extreme agitation Last Admin: 04/23/17 12:49 Dose: 0.5 mg Lorazepam (Ativan Inj) 0.5 mg IM Q6H PRN PRN Reason: Extreme agitation Oseltamivir Phosphate (Tamiflu) 30 mg PO DAILY [facility] Stop: 05/01/17 09:01 Last Admin: 04/27/17 11:16 Dose: 30 mg Ziprasidone (Geodon) 20 mg PO BIDWM [facility] Last Admin: 04/27/17 17:19 Dose: 20 mg Subjective: Patient seen and chart reviewed. Case discussed with treatment team. On interview, patient reports his mood is good and that he feels well physically. He does not have any insight into reasons for hospitalization. Patient denies any SI, HI or AVH. Patient denies any adverse side effects related to psychotropic medications. No EPS noted on physical exam. Nursing staff report patient has not had significant behavioral difficulties on the unit. Patient has been adherent with medications. Patient slept 6.75 hours overnight. VSS. Patient is eating well. Psychotropic PRNs required in the past 24 hours: none. Shelley Cedeno to assess patient today. I spoke with patient's DPOA in regards to diagnosis, prognosis, treatment. We also discussed possible side effects of psychotropics, including black box warning for antipsychotic use in dementia. All questions were answered to their satisfaction at the time. Start Time: 09:00 Stop Time: 09:20 Care: >50% of this visit spent in counseling/coordination care. (discharge planning with family) Mental Status Exam Vitals: Last Vital Signs Temp 98.0 F 04/27/17 16:00 Pulse 60 04/27/17 16:00 Resp 20 04/27/17 16:00 BP 144/70 H 04/27/17 16:00 Pulse Ox 97 04/27/17 16:00 Height: 1.83 m Weight: 82.7 kg - Mental Status Exam Muscle Strength/Tone: Normal Dressing: Casual Grooming: Fair Attitude: Cooperative Motor Activity: Retardation Eye Contact: Good Speech: Slowed Volume: Normal Rhythm: Appropriate Rhythm Sensory: Alert Orientation: Disoriented to time, Disoriented to place, Disoriented to situation , Oriented to person Mood: Euthymic Affect: Relaxed Rate of Thoughts: Delayed Thought Organization: Confused Associations: Illogical (at times) Abstract Reasoning: Poor abstract reasoning Thought Content: Normal Perception/Psychotic: Hx psychosis, not current Language: Naming Impaired Fund of Knowledge: Poor fund of knowledge Memory: Poor-recent Suicidal Ideation: Denies Homicidal Ideation: Denies Insight: Impaired Judgement: Impaired Impulse Control: Good - Laboratory Result Diagrams: 04/27/17 07:13 04/27/17 07:13 Laboratory Results - last 24 hr 04/26/17 04/27/17 04/27/17 22:29 07:13 07:13 WBC 2.9 L RBC 3.02 L Hgb 10.1 L Hct 30.7 L MCV 101.7 H MCH 33.4 MCHC 32.9 RDW Std Deviation 53.6 H Plt Count 150 MPV Not performed Immature Gran % (Auto) Not performed Neut % (Auto) Not performed Lymph % (Auto) Not performed [place] % (Auto) Not performed Eos % (Auto) Not performed Baso % (Auto) Not performed Neut # (Auto) Not performed Lymph # (Auto) Not performed [place] # (Auto) Not performed Eos # (Auto) Not performed Baso # (Auto) Not performed Abs Immat Gran (auto) Not performed Neutrophils % (Manual) 29.0 L Lymphocytes % (Manual) 61.0 H Monocytes % (Manual) 7.0 Eosinophils % (Manual) 2.0 Basophils % (Manual) 1.0 Neutrophils # (Manual) 0.8 L Lymphocytes # (Manual) 1.8 Monocytes # (Manual) 0.2 Eosinophils # (Manual) 0.1 Basophils # (Manual) 0.0 Poikilocytosis 1+ Anisocytosis 1+ Tear Drop Cells 1+ Ovalocytes 1+ Schistocytes 1+ RBC Morph Comment Abnormal Turbidity < 20 Sodium 142 Potassium 4.1 Chloride 107 Carbon Dioxide 24 Anion Gap 11 BUN 29.0 H Creatinine 1.3 D GFR Calculation 53 BUN/Creatinine Ratio 22 Glucose 89 Calculated Osmolality 278 Calcium 9.1 Icterus Index < 2 Specimen Hemolysis < 15 Ur Collection Type Urine, void-cc/notcc Urine Color Yellow Urine Clarity Clear Urine pH 6.0 Ur Specific [place] 1.020 Urine Protein Negative Urine Glucose (UA) Negative Urine Ketones Negative Urine Occult Blood Trace-lysed Urine Nitrate Negative Urine Bilirubin Negative Urine Urobilinogen 0.2 Ur Leukocyte Esterase Negative Urinalysis Comment Microscopic not ind. 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 Hospital Course Summary Disclaimer: The visit summary below is not to be considered part of the above Progress Note. Hospital Course: Impression Dementia with disturbances Reported cognitive decline Hypertension Hyperlipidemia GERD Myeloid dysplastic syndrome Depression Plan Agree with admission to [facility] under the care of Dr. Echeverria given psychiatric changes Any with chronic medications including Lipitor, aspirin, Plavix Will monitor occasional labs He has completed treatment for both urinary tract infection and influenza a. Encourage patient to purchase been in unit activities and provide a safe environment Did discuss with daughter, Nelli SINGH that will likely need to review discharge plans the patient is safe. May not be ideal for him to return to independent home. Appreciate medical consultation, the hospitalist services will continue to follow patient during his stay on [email or web address] unit. At time of discharge medical care will return to his primary care provider, Dr. James Richards in [place] 04/23/2017 Psych- Pt did not sleep well but has not had any behaviors. Will contact family to discuss starting PRN sleep aid 04/24/2017 Sleeping better. Remains confused but no aggression. Continue current care 04/25/17 Psych: Continue current care, monitor for recurrence of AVH; SW and CM working on arranging placement at [facility] after. discharge. 04/26/17 Psych: Continue current care; [facility] to assess patient for their care facility. Plan - 04/27/17 Overall, patient is doing well medically. Anticipate discharge tomorrow, 04/28/17 , to nursing facility. Repeat labs were stable. Recommend follow up with PCP as needed. 04/27/17 Psych: Plan to discharge to [facility] once available for continued outpatient psychiatric care.
[2017-04-27] MEDS: ATORVASTATIN 40 MG TABLET PO SCH (20:23)
[2017-04-28] MEDS: ASPIRIN 81 MG CHEWABLE TABLET PO SCH (09:21)
[2017-04-28] MEDS: ZIPRASIDONE 20 MG CAPSULE PO SCH (09:21)
[2017-04-28] MEDS: CLOPIDOGREL 75 MG TABLET PO SCH (09:22)
[2017-04-28] MEDS: ESCITALOPRAM 10 MG TABLET PO SCH (09:22)
[2017-04-28] MEDS: CYANOCOBALAMIN (B-12) 500mcg TABLET PO SCH (09:22)
--- NOTE | 2017-04-28 09:35 | Extended Care Facility Orders ---
Admission Orders Admit to:: [facility] Allergies/Adverse Reactions: Allergies levofloxacin Allergy (Verified 04/22/17 00:30) Admitting Diagnosis: Dementia w/behavioral disturbance Admitting Physician: Susan Echeverria MD Attending Physician: Susan Echeverria MD Code Status: Do Not Resuscitate Anticiapted Length of Stay: greater than 30 days Rehab Potential: fair Rehab Prognosis: fair Diet: 04/21/17 Dinner Regular Diet [DIET] Diet Modifications: May use Facility Protocol or Standing Orders: Yes May have flu vaccine: Yes Evaluations/Treatment: Psychiatric, as needed Correction Certification: I certify that SNF services are required to be given on an Inpatient basis because of the patients need for retirement care on a continuing basis for the condition(s) for which he/she received inpatient hospital services prior to his/her transfer to the SNF. SNF inpatient care is necessary for the following reasons Indication for Correction: Not Applicable - Additional Information In Event of Arrest: Do Not Start CPR Resident is Aware of Diagnosis: No (due to dementia) Referrals: Ravi Richards [Family Provider] - (Dr. Teresa Rodrigues on 05/11/17 at 2:30 pm for Hosp. follow-up. [facility] [address] [place] [address] [place] [id number] PCP will manage Mental Health needs at this time.)
[2017-04-28 11:24] VITALS: BP 137/76; PULSE 62; RESP 16; TEMP 98.2
== END 2017-04-28 15:05 | DRG 884 ==
LOC: GEN 17:20
PROVIDERS: ADMIT Psychiatry & Neurology Psychiatry; ATTEND Psychiatry & Neurology Psychiatry